=== PATIENT | female | born 1990 ===

== ENCOUNTER 2018-07-02 16:35 | Emergency (ER) | payer OTHER ==
[~2018-07-02] VITALS: Ht 157.5 cm; Wt 63.5 kg
[2018-07-02 17:06] LABS: BILIRUBIN,URINE NEGATIVE (NEGATIVE); CLARITY,URINE CLEAR; GLUCOSE, URINE (UA) NEGATIVE (NEGATIVE); KETONES,URINE NEGATIVE (NEGATIVE); LEUKOCYTE ESTERASE ,URINE NEGATIVE (NEGATIVE); NITRITE,URINE NEGATIVE (NEGATIVE); PH,URINE 6.5 (5-9); PROTEIN,URINE NEGATIVE (NEGATIVE); UROBILINOGEN,URINE NORMAL (NORMAL)
[2018-07-02 17:08] LABS: BASOPHILS % (AUTO) 0 % (0-10); EOSINOPHILS # (AUTO) 0.2 10^3/uL (0.0-0.3); EOSINOPHILS % (AUTO) 2 % (0-10); HEMATOCRIT 37 % (35-52); HEMOGLOBIN 12.7 G/DL (11.5-16.0); LYMPHOCYTES # (AUTO) 1.9 X 10^3 (1.0-4.0); LYMPHOCYTES % (AUTO) 28 % (12-44); MEAN CORPUSCULAR HEMOGLOBIN 30 PG (25-34); MEAN CORPUSCULAR HGB CONC 34 G/DL (32-36); MEAN CORPUSCULAR VOLUME 89 FL (80-99); MONOCYTES # (AUTO) 0.5 X 10^3 (0.0-1.0); MONOCYTES % (AUTO) 7 % (0-12); NEUTROPHILS # (AUTO) 4.2 X 10^3 (1.8-7.8); NEUTROPHILS % (AUTO) 63 % (42-75); PLATELET COUNT 230 10^3/uL (130-400); RED BLOOD COUNT 4.19 10^6/uL (4.35-5.85); RED CELL DISTRIBUTION WIDTH 12.7 % (10.0-14.5); WHITE BLOOD COUNT 6.7 10^3/uL (4.3-11.0)
[2018-07-02 17:10] LABS: COLOR,URINE STRAW
[2018-07-02 17:11] LABS: BACTERIA,URINE NEGATIVE /HPF
[2018-07-02 17:12] LABS: SQUAMOUS EPITHELIAL CELL,UR 0-2 /HPF
[2018-07-02 17:27] LABS: ALANINE AMINOTRANSFERASE 17 U/L (0-55); ALBUMIN 4.5 GM/DL (3.2-4.5); ALKALINE PHOSPHATASE 59 U/L (40-136); BILIRUBIN,TOTAL 0.3 MG/DL (0.1-1.0); BUN/CREATININE RATIO 8; CALCIUM 9.5 MG/DL (8.5-10.1); CARBON DIOXIDE 23 MMOL/L (21-32); CHLORIDE 104 MMOL/L (98-107); CREATININE SERUM 0.63 MG/DL (0.60-1.30); GFR ESTIMATED > 60; GLUCOSE 92 MG/DL (70-105); POTASSIUM 3.7 MMOL/L (3.6-5.0); SODIUM 138 MMOL/L (135-145)
--- NOTE | 2018-07-02 17:32 | ED GU-Female ---
General Chief Complaint: -Female Stated Complaint: SPOTTING AFTER + HOME TEST LMP 05/24/18 Nursing Triage Note: PATIENT AMBULATORY TO ER WITH COMPLAINT OF VAGINAL SPOTTING X 2 DAYS. PATIENT STATES LAST MENSTRUAL CYCLE WAS 05/24/18 AND SHE HAD A POSITIVE HOME TEST. SHE HAS HAD ABDOMINAL CRAMPING AND LOW BACK PAIN FOR TWO DAYS. Nursing Sepsis Screen: No Definite Risk Source: patient Exam Limitations: no limitations History of Present Illness Date Seen by Provider: Jul 02, 2018 Time Seen by Provider: 16:39 Initial Comments Patient is a 28-year-old female who presents to the emergency room with complaints of vaginal spotting for the past 2 days. She reports that she had a positive test at home a few days ago and her last menstrual cycle was 05/24/18. Along with the spotting she is having abdominal cramping and low back pain for the past 2 days. Timing/Duration: yesterday Severity/Quality: cramping Location: suprapubic Radiation: back Associated Symptoms: lower back pain Allergies and Home Medications Allergies Coded Allergies: No Known Drug Allergies (Unverified , 07/02/18) Patient Home Medication List Home Medication List Reviewed: Yes Review of Systems Review of Systems Constitutional: see HPI; No chills, No fever Genitourinary: see HPI, other (vaginal spotting.) : Yes LMP: May 04, 2018 All Other Systemes Reviewed Negative Unless Noted: Yes Past Vhmhdgj-Poejdo-Zzjgal Hx Past Med/Social Hx: Reviewed Nursing Past Med/Soc Hx Patient Social History Alcohol Use: Denies Use Recreational Drug Use: No Smoking Status: Never a Smoker 2nd Hand Smoke Exposure: No Recent Foreign Travel: No Contact w/Someone Who Travel: No Recent Infectious Disease Expo: No Recent Hopitalizations: No Physical Abuse: No Sexual Abuse: No Mistreated: No Fear: No Seasonal Allergies Seasonal Allergies: No Past Medical History Surgeries: Yes Gallbladder Respiratory: No Cardiac: No Neurological: No : Yes (POSITIVE HOME TEST) Last Menstrual Period: May 24, 2018 Genitourinary: No Gastrointestinal: Yes Gastroesophageal Reflux Musculoskeletal: No Endocrine: No HEENT: No Cancer: No Psychosocial: No Integumentary: No Blood Disorders: No Family Medical History Reviewed Nursing Family Hx Physical Exam Vital Signs Vital Signs - First Documented 07/02/18 07/02/18 16:39 19:53 Temp 98.6 Pulse 79 Resp 16 B/P (MAP) 110/71 (84) Pulse Ox 100 O2 Delivery Room Air Capillary Refill : Less Than 3 Seconds Height, Weight, BMI Height: 5'2.00" Weight: 140lbs. oz. 63.840626ym; BMI Method:Stated General Appearance: WD/WN, no apparent distress Cardiovascular: normal peripheral pulses, regular rate, rhythm, no edema, no gallop, no JVD, no murmur Respiratory: chest non-tender, lungs clear, normal breath sounds, no respiratory distress, no accessory muscle use, respiratory distress Gastrointestinal: normal bowel sounds, non tender, soft, no organomegaly, no pulsatile mass, abnormal bowel sounds Back: normal inspection, no CVA tenderness, no vertebral tenderness, CVA tenderness (R), CVA tenderness (L) Neurologic/Psychiatric: alert, normal mood/affect, oriented x 3 Skin: normal color, warm/dry Progress/Results/Core Measures Suspected Sepsis Recent Fever Within 48 Hours: No Infection Criteria Present: None New/Unexplained Altered Menta: No Sepsis Screen: No Definite Risk SIRS Temperature:98.6 Pulse: 79 Respiratory Rate: 16 Laboratory Tests 07/02/18 17:01: White Blood Count 6.7 Blood Pressure 110 /71 Mean: 84 Laboratory Tests 07/02/18 17:01: Creatinine 0.63, Platelet Count 230, Total Bilirubin 0.3 Results/Orders Lab Results My Orders Vital Signs/I&O Capillary Refill : Less Than 3 Seconds Blood Pressure Mean: 84 Progress Note : Time: 19:40 Progress Note I have seen and evaluated the patient. I've informed her of ultrasound findings. She agrees with plans for discharge, close follow-up with counts include [facility] beds at the [facility] and Dr. Roberts as scheduled for recheck. Return precautions were given. Diagnostic Imaging Diagonstic Imaging: Ultrasound Plain Films/CT/US/NM/MRI: pelvis Comments NAME: ZEESHANANTONIETA Ma [facility] REC#: [id number] PT STATUS: DEP ER : 1990 PHYSICIAN: SARMAD COLUNGA ADMIT DATE: 07/02/18/ER Signed Date of Exam: 07/02/18 US OB TRANSVAGINAL [id number] INDICATION: Vaginal bleeding. COMPARISON: None available. TECHNIQUE: Transvaginal sonographic imaging of the pelvis was performed in various projections. FINDINGS: There is a gestational sac located within the uterus at the level of the fundus. The gestational sac has a normal morphology. A normal yolk sac is present within the gestational sac. A very small embryo is present with a heart rate detected at 101 beats per minute. Based on crown-rump length, the estimated gestational age is 5 weeks and 6 days. Estimated due date is 02/26/2019. Assessment of the adnexa demonstrated no abnormality. The right ovary measures 2.4 x 2.4 x 1.8 cm. The left ovary is not seen. No free pelvic fluid. IMPRESSION: Single live early intrauterine . Dictated by: Dictated on workstation # [id number] Dict: 07/02/181931 Trans: 07/02/182006 Interpreted by: YOSELIN COOK MD Electronically signed by: YOSELIN COOK MD 07/02/182006 Reviewed: Reviewed by Me Departure Impression Primary Impression: Spotting during in first trimester Disposition: 01 HOME, SELF-CARE Condition: Stable/Unchanged Departure-Patient Inst. Decision time for Depature: 19:45 Referrals: FEDERICO ROBERTS DO Patient Instructions: SPOTTING IN EARLY Add. Discharge Instructions: Continue your vitamins as directed. Follow-up with Dr. ROBERTS as scheduled next week. Return back to the emergency room for any worsening vaginal bleeding, any worsening symptoms. No intercourse or anything intravaginally until you follow-up with Dr. ROBERTS. All discharge instructions reviewed with patient and/or family. Voiced understanding. SARMAD COLUNGA Jul 02, 2018 17:32
--- NOTE | 2018-07-02 19:41 | Diagnostic Imaging Report ---
INDICATION: Vaginal bleeding. COMPARISON: None available. TECHNIQUE: Transvaginal sonographic imaging of the pelvis was performed in various projections. FINDINGS: There is a gestational sac located within the uterus at the level of the fundus. The gestational sac has a normal morphology. A normal yolk sac is present within the gestational sac. A very small embryo is present with a heart rate detected at 101 beats per minute. Based on crown-rump length, the estimated gestational age is 5 weeks and 6 days. Estimated due date is 02/26/2019. Assessment of the adnexa demonstrated no abnormality. The right ovary measures 2.4 x 2.4 x 1.8 cm. The left ovary is not seen. No free pelvic fluid. IMPRESSION: Single live early intrauterine . Dictated by: Dictated on workstation # [id number]
[2018-07-02 19:53] VITALS: BP 103/65
== END 2018-07-02 19:53 | disposition home or self-care (01) ==
LOC: ER 16:38
DX: O26.851 Spotting complicating pregnancy, first trimester (principal); O99.611 Diseases of the digestive system complicating pregnancy, first trimester; K21.9 Gastro-esophageal reflux disease without esophagitis; Z3A.01 Less than 8 weeks gestation of pregnancy
CPT/HCPCS: 36415; 76817; 80053; 81000; 84702; 85025

== ENCOUNTER → 2018-10-20 | Outpatient (CLI) | payer OTHER ==
--- NOTE | 2018-10-20 15:10 | Diagnostic Imaging Report ---
INDICATION: survey. TECHNIQUE: Multiple real-time grayscale images were obtained over the gravid uterus. COMPARISON: 07/02/2018. FINDINGS: There is a single live fetus in a transverse presentation. The heart rate was recorded at 156 beats per minute. Placenta is anterior. The amniotic fluid volume is normal. survey demonstrates kidneys, bladder and stomach to be unremarkable. The brain is unremarkable. There is a three-vessel cord with normal insertion. Four-chamber heart view as well as the spine are somewhat limited due to position. Biometrical measurements are as follows: Biparietal 5.26 cm, age 22 weeks 0 days. Head circumference 19.63 cm, age 21 weeks 6 days. Abdominal circumference 17.79 cm, age 22 weeks 5 days. Femur length 3.69 cm, age 21 weeks 6 days. Sonographic estimate age: 22 weeks 1 days. Sonographic estimated date of delivery: 02/22/2019. Estimated Weight: 485 gm (+/- 71 gm). LMP percentile: 89%. heart rate: 156 beats per minute. number: 1 of 1. IMPRESSION: Single live IUP approximately 22 weeks 1 day gestational age with estimated date of confinement sonographically 02/22/2019. survey is unremarkable although the spine and four-chamber heart view were limited due to position. Dictated by: Dictated on workstation # [id number]
== END ==
LOC: RAD 11:12
PROVIDERS: ATTEND Obstetrics & Gynecology
DX: Z36.89 Encounter for other specified antenatal screening (principal); Z68.22 Body mass index [BMI] 22.0-22.9, adult
CPT/HCPCS: 76805

== ENCOUNTER 2019-02-12 10:53 | Inpatient (IN) | payer MEDICAID, OTHER ==
[~2019-02-12] VITALS: Ht 144.8 cm; Wt 76.9 kg
[2019-02-12] VITALS (55 sets, daily range): BP systolic 87–137; BP diastolic 49–76
--- NOTE | 2019-02-12 11:01 | NUR ---
ANTONIETA BRADEN presented to unit via AMBULATORY from ED, accompanied by FAMILY, with c/o WATER BROKE/CONTRACTIONS. ANTONIETA BRADEN weighed, gowned, voided, and to bed. EFHM and TOCO applied, VS taken. ANTONIETA BRADEN oriented to bed controls, call light, TV, heat, and A/C controls.
[2019-02-12] MEDS ORDERED: DOCU-143 PO (11:16)
--- NOTE | 2019-02-12 11:16 | NUR ---
Dr. Roberts notified of patient's arrival, complaints, and exam. New orders received.
[2019-02-12] MEDS ORDERED: PREN-37 PO (11:17)
[2019-02-12] MEDS ORDERED: OXYTOCIN/NORMAL SALINE 500 ML IV SCH (11:30)
[2019-02-12] MEDS ORDERED: D5 LR IV SOLUTION 1,000 ML IV SCH (11:30)
[2019-02-12 11:56] LABS: BASOPHILS % (AUTO) 0 % (0-10); EOSINOPHILS % (AUTO) 0 % (0-10); HEMATOCRIT 32 % (35-52); LYMPHOCYTES # (AUTO) 1.7 X 10^3 (1.0-4.0); LYMPHOCYTES % (AUTO) 21 % (12-44); MEAN CORPUSCULAR HEMOGLOBIN 26 PG (25-34); MEAN CORPUSCULAR HGB CONC 32 G/DL (32-36); MEAN CORPUSCULAR VOLUME 81 FL (80-99); MEAN PLATELET VOLUME 10.7 FL (7.4-10.4); MONOCYTES # (AUTO) 0.5 X 10^3 (0.0-1.0); MONOCYTES % (AUTO) 6 % (0-12); NEUTROPHILS # (AUTO) 5.8 X 10^3 (1.8-7.8); NEUTROPHILS % (AUTO) 73 % (42-75); PLATELET COUNT 273 10^3/uL (130-400); RED CELL DISTRIBUTION WIDTH 15.8 % (10.0-14.5)
[2019-02-12 12:01] LABS: BILIRUBIN,URINE NEGATIVE (NEGATIVE); CLARITY,URINE SLIGHTLY CLOUDY; COLOR,URINE YELLOW; GLUCOSE, URINE (UA) NEGATIVE (NEGATIVE); KETONES,URINE NEGATIVE (NEGATIVE); LEUKOCYTE ESTERASE ,URINE NEGATIVE (NEGATIVE); NITRITE,URINE NEGATIVE (NEGATIVE); PH,URINE 6 (5-9); PROTEIN,URINE 2+ (NEGATIVE); UROBILINOGEN,URINE NORMAL (NORMAL)
[2019-02-12 12:20] LABS: BACTERIA,URINE TRACE /HPF
[2019-02-12] MEDS ORDERED: SUFENTA 0.6MCG/ML BUPIVA 0.125 100 ML ONE (16:45)
[2019-02-12] MEDS ORDERED: LACTATED RINGERS 1,000 ML IV ONE ×3 (16:45→17:54)
[2019-02-12] MEDS ORDERED: BUPIVACAINE 0.25% 30 ML (SENSORCAINE) VIAL ONE (17:21)
[2019-02-12] MEDS ORDERED: fentaNYL INJECTION 100 MCG/2 ML AMP ONE (17:22)
[2019-02-12] MEDS ORDERED: EPIDURAL (SUFENTA 0.6MCG/ML BUPIVA 0.125%) 100 ML BAG EPI PRN (18:00)
[2019-02-12] MEDS ORDERED: ONDANSETRON 4 MG/2 ML (SDV) Z0FRAN IV PRN (18:00)
[2019-02-12] MEDS ORDERED: NALOXONE 0.4 MG/ML 1 ML (NARCAN) VIAL IV PRN (18:00)
[2019-02-12] MEDS: CATHETER FLUSH 10 ML SYR IV SCH (18:14)
[2019-02-12] MEDS ORDERED: LIDOCAINE/EPI 2% 1:200,00 (XYLOCAINE) 10 ML VIAL ONE (19:28)
--- NOTE | 2019-02-12 20:08 | OB Labor & Delivery Record ---
L&D History Date of Service Date of Service: February 12, 2019 History Expected Date of Delivery: Feb 28, 2019 Gestational Age in Weeks: 37 Hx : 3 Hx Para: 2 Complications Events: Routine care Operative Indications (Cesarea: N/A-Vaginal Delivery Intrapartal Events: None L&D Stage1 Stage One Onset of Labor - Date: February 12, 2019 Monitors and Tracing Monitor Mode: External Heart Rate: 145 Monitor Accelerations: Uniform Monitor Decelerations: None Station: -1 Oil [employer] Superintendent Variability: Average (6-10) Short Term Variability: Present Presentation: Vertex Vital Signs VS - Last 72 Hours, by Label 02/12/19 02/12/19 02/12/19 02/12/19 11:14 11:59 12:14 12:29 Temp 98.0 Pulse 90 90 82 88 Resp 18 18 18 18 B/P (MAP) 108/69 (82) 111/70 (84) 120/63 (82) 109/65 (80) O2 Delivery Room Air Room Air Room Air Room Air 02/12/19 02/12/19 02/12/19 02/12/19 13:07 13:14 13:30 13:44 Temp 99.1 Pulse 76 98 75 75 Resp 18 18 18 18 B/P (MAP) 106/58 (74) 106/60 (75) 104/59 (74) 101/60 (74) O2 Delivery Room Air Room Air Room Air Room Air 02/12/19 02/12/19 02/12/19 02/12/19 14:00 14:15 14:30 14:45 Pulse 71 78 75 78 Resp 18 18 18 18 B/P (MAP) 104/62 (76) 111/63 (79) 109/64 (79) 116/68 (84) O2 Delivery Room Air Room Air Room Air Room Air 02/12/19 02/12/19 02/12/19 02/12/19 15:00 15:15 15:30 15:45 Temp 98.7 Pulse 72 70 75 68 Resp 18 18 18 18 B/P (MAP) 108/61 (77) 105/59 (74) 113/69 (84) 109/62 (78) O2 Delivery Room Air Room Air Room Air Room Air 02/12/19 02/12/19 02/12/19 02/12/19 16:00 16:15 16:15 16:30 Temp 98.2 Pulse 67 77 70 Resp 18 18 18 B/P (MAP) 111/66 (81) 110/58 (75) 110/65 (80) O2 Delivery Room Air Room Air Room Air 02/12/19 02/12/19 02/12/19 02/12/19 16:45 17:00 17:15 17:27 Pulse 75 73 83 Resp 18 18 18 B/P (MAP) 114/62 (79) 115/67 (83) 108/66 (80) Pulse Ox 100 O2 Delivery Room Air Room Air Room Air Room Air 02/12/19 02/12/19 02/12/19 02/12/19 17:30 17:30 17:33 17:35 Pulse 94 86 92 Resp 18 18 18 B/P (MAP) 114/71 (85) 120/64 (82) 137/66 (89) Pulse Ox 100 O2 Delivery Room Air Room Air Room Air Room Air 02/12/19 02/12/19 02/12/19 02/12/19 17:37 17:39 17:41 17:43 Pulse 87 93 97 82 Resp 18 18 18 18 B/P (MAP) 119/64 (82) 119/63 (81) 118/58 (78) 126/62 (83) Pulse Ox 95 99 O2 Delivery Room Air Room Air Room Air Room Air 02/12/19 02/12/19 02/12/19 02/12/19 17:45 17:45 17:47 17:49 Temp 98.6 Pulse 85 80 84 Resp 18 18 18 B/P (MAP) 117/59 (78) 114/57 (76) 110/57 (74) Pulse Ox 98 98 O2 Delivery Room Air Room Air Room Air Room Air 02/12/19 02/12/19 02/12/19 02/12/19 17:51 17:53 17:55 17:57 Pulse 75 75 76 76 Resp 18 18 18 18 B/P (MAP) 107/55 (72) 106/55 (72) 100/58 (72) 102/57 (72) Pulse Ox 98 O2 Delivery Room Air Room Air Room Air Room Air 02/12/19 02/12/19 02/12/19 02/12/19 17:59 18:01 18:04 18:04 Temp 98.1 Pulse 71 66 Resp 18 18 B/P (MAP) 105/55 (72) 105/58 (74) Pulse Ox 99 100 100 O2 Delivery Room Air Room Air Room Air Room Air 02/12/19 02/12/19 02/12/19 02/12/19 18:15 18:30 18:45 19:00 Temp 98.0 Pulse 72 67 69 68 Resp 18 18 18 18 B/P (MAP) 104/57 (73) 109/53 (71) 102/55 (71) Pulse Ox 100 100 99 100 O2 Delivery Room Air Room Air Room Air Room Air Rupture of Membranes Spontaneous Ruture of Membrane: Yes Amniotic Membrane Rupture Time: 0400 Amniotic Membrane Fluid Desc.: Clear Vaginal Bleeding Description: Normal Show Induction/Anesthesia Epidural Cath Placement - Time: 1739 Progress/Notes Augmentation with pitocin started at admission due to no contraction pattern. Pitocin Max dose of 10 mu reached and progressed to complete and +1 station with epidural received for analgesia L&D Stage2 Stage Two Stage II Date: February 12, 2019 Monitors and Tracing Monitor Mode: External Heart Rate: 145 Monitor Accelerations: Uniform Monitor Decelerations: Variable [employer] Superintendent Variability: Average (6-10) Short Term Variability: Present Position: Right Occiput Anterior Presentation: Vertex Cord Descript/Complications Cord Vessel Description: 3 Vessels Delivery Type Delivery Method: Spontaneous Vaginal Anterior Shoulder: Right Episiotomy/Perineal Laceration Laceraction(s)/Extensions: No Condition of Infant Delivery 1 minute Comment: 9 5 minute Comment: 9 Notes Live female weight 7lbs 5oz Condition of Infant Condition of : Living Exam: No Observed Abnormalities Resuscitation Resuscitation: N/A - Spontaneous Resp L&D Stage3 Stage Three Stage III Date: February 12, 2019 Pictocin Pitocin Administration mu/min: 12 Pitocin ml/hr: 12 Pitocin Administration Comment: 30 mu wide open at delivery ofplacenta Placenta Delivery Placenta Delivery: Spontaneous Delivery Summary Summary Estimated blood loss (mL): 250 Attending at delivery: Federico Tellez DO Condition of Delivery Examined: Cervix Examined, Uterus Explored Post Hemorrhage: No Condition of Mother stable Condition of Infant (s) stable FEDERICO TELLEZ DO February 12, 2019 20:08
--- NOTE | 2019-02-12 20:12 | History & Physical-OB ---
OB - Chief Complaint & HPI Date/Time Date of Admission: Date of Admission: February 12, 2019 at 11:16 Date seen by a Provider: February 12, 2019 Time Seen by a Provider: 07:15 Chief Complaint/History OB-Reason for Admission/Chief: Onset of Labor Hx : 3 Hx Para: 2 Expected Date of Delivery: Feb 28, 2019 Gestational Age in Weeks: 37 Gestational Age in Days: 5 Admission Nurse Assessment Rev: Yes Allergies and Home Medications Allergies Coded Allergies: No Known Drug Allergies (Unverified , 07/02/18) Home Medications Docusate Sodium 100 Mg Capsule, 100 MG PO BID, (Reported) Vit/Iron Fumarate/FA 1 Each Tablet, 1 EACH PO DAILY, (Reported) Patient Home Medication List Home Medication List Reviewed: Yes OB - History Hx of Present Care: Yes Ultrasounds: Normal mid trimester US Obstetrical Complications: None Medical Complications: None Obstetrical History Hx : 3 Hx Para: 2 Hx Total # of Abortions (Spona: 0 Delivery History Adverse Rxn to Tranfusion: No Patient Past Medical History n/a Social History/Family History Recent Infectious Disease Expo: No Alcohol Use: Denies Use Recreational Drug Use: No 2nd Hand Smoke Exposure: No OB - Admission Exam Physical Exam Vitals: Vital Signs 02/12/19 02/12/19 18:45 19:00 Temp 98.0 Pulse 68 Resp 18 B/P (MAP) 102/55 (71) Pulse Ox 100 O2 Delivery Room Air HEENT: NCAT Heart: Rhythm Normal Lungs: Clear Abdomen: Gravid Extremities: Normal Reflexes: Normal Cervical Dilatation: 2cm Effacement: 50% Station: -2 Membranes: Ruptured Amniotic Fluid: Clear Heart Rate: 130's Accelerations: Accelerations Present Decelerations: No Decelerations Short Term Variability: Present Lead Enterprise Architect Variability: Average (6-25) Contractions on Admission: 6-10 Minutes Apart Labs Laboratory Tests Test 02/12/19 11:01 02/12/19 11:40 Range/Units Urine Color YELLOW Urine Clarity SLIGHTLY CLOUDY Urine pH 6 5-9 Urine Specific [place] 1.020 1.016-1.022 Urine Protein 2+ H NEGATIVE Urine Glucose (UA) NEGATIVE NEGATIVE Urine Ketones NEGATIVE NEGATIVE Urine Nitrite NEGATIVE NEGATIVE Urine Bilirubin NEGATIVE NEGATIVE Urine Urobilinogen NORMAL NORMAL MG/DL Urine Leukocyte Esterase NEGATIVE NEGATIVE Urine RBC (Auto) NEGATIVE NEGATIVE Urine RBC NONE /HPF Urine WBC NONE /HPF Urine Squamous Epithelial Cells 5-10 /HPF Urine Crystals NONE /LPF Urine Bacteria TRACE /HPF Urine Casts NONE /LPF Urine Mucus SMALL H /LPF Urine Culture Indicated NO White Blood Count 8.0 4.3-11.0 10^3/uL Red Blood Count 3.89 L 4.35-5.85 10^6/uL Hemoglobin 10.0 L 11.5-16.0 G/DL Hematocrit 32 L 35-52 % Mean Corpuscular Volume 81 80-99 FL Mean Corpuscular Hemoglobin 26 25-34 PG Mean Corpuscular Hemoglobin Concent 32 32-36 G/DL Red Cell Distribution Width 15.8 H 10.0-14.5 % Platelet Count 273 130-400 10^3/uL Mean Platelet Volume 10.7 H 7.4-10.4 FL Neutrophils (%) (Auto) 73 42-75 % Lymphocytes (%) (Auto) 21 12-44 % Monocytes (%) (Auto) 6 0-12 % Eosinophils (%) (Auto) 0 0-10 % Basophils (%) (Auto) 0 0-10 % Neutrophils # (Auto) 5.8 1.8-7.8 X 10^3 Lymphocytes # (Auto) 1.7 1.0-4.0 X 10^3 Monocytes # (Auto) 0.5 0.0-1.0 X 10^3 Eosinophils # (Auto) 0.0 0.0-0.3 10^3/uL Basophils # (Auto) 0.0 0.0-0.1 10^3/uL OB - Assessment/Plan/Diagnosis Assessment Assessment: rupture of membranes Admission Dx 29 yo @ 37.5 weeks SROM Active labor GBS neg Admission Status: Inpatient Order (span 2 midnights) Reason for Inpatient Admission: SROM at term Plan Plan: Expectant Management (Pitocin augmentation) FEDERICO TELLEZ DO February 12, 2019 20:12
[2019-02-12] MEDS: OXYTOCIN/NORMAL SALINE 500 ML IV SCH ×2 (20:15→22:44)
[2019-02-12] MEDS ORDERED: MEASLES,MUMPS,RUBELLA 1 EA INJ SQ ONE (20:15)
[2019-02-12] MEDS ORDERED: WITCH HAZEL(TUCKS) 40 EA JAR TOP PRN (20:15)
[2019-02-12] MEDS ORDERED: BENZOCAINE/MENTHOL (DERMOPLAST) 56 ML CAN TP PRN (20:15)
[2019-02-12] MEDS ORDERED: TETANUS,DIPTH,PERTUSS P/F (BOOSTRIX) 0.5 ML VIAL IM ONE (20:15)
[2019-02-12] MEDS ORDERED: CATHETER FLUSH 10 ML SYR IV SCH (22:00)
[2019-02-13] MEDS: CATHETER FLUSH 10 ML SYR IV SCH (00:51)
[2019-02-13 00:56] VITALS: BP 87/53
[2019-02-13] MEDS: IBUPROFEN 600 MG (MOTRIN) TAB PO SCH ×4 (00:56→20:50)
[2019-02-13] MEDS: DOCUSATE SODIUM 100 MG (COLACE) CAP PO SCH ×3 (00:56→20:50)
[2019-02-13 04:20] VITALS: BP 98/65
[2019-02-13] MEDS: HYDROcodone/APAP 5 MG/325 MG (LORTAB) TAB PO PRN ×2 (04:20→17:25)
[2019-02-13 05:39] LABS: BASOPHILS % (AUTO) 0 % (0-10); EOSINOPHILS % (AUTO) 0 % (0-10); HEMATOCRIT 32 % (35-52); HEMOGLOBIN 9.8 G/DL (11.5-16.0); LYMPHOCYTES # (AUTO) 1.9 X 10^3 (1.0-4.0); LYMPHOCYTES % (AUTO) 16 % (12-44); MEAN CORPUSCULAR HEMOGLOBIN 26 PG (25-34); MEAN CORPUSCULAR HGB CONC 31 G/DL (32-36); MEAN CORPUSCULAR VOLUME 83 FL (80-99); MEAN PLATELET VOLUME 10.8 FL (7.4-10.4); MONOCYTES # (AUTO) 0.8 X 10^3 (0.0-1.0); MONOCYTES % (AUTO) 7 % (0-12); NEUTROPHILS # (AUTO) 8.7 X 10^3 (1.8-7.8); NEUTROPHILS % (AUTO) 76 % (42-75); PLATELET COUNT 232 10^3/uL (130-400); RED CELL DISTRIBUTION WIDTH 15.8 % (10.0-14.5); WHITE BLOOD COUNT 11.5 10^3/uL (4.3-11.0)
--- NOTE | 2019-02-13 07:00 | NUR ---
REPORT FROM MAGALYS CORNEJO.
--- NOTE | 2019-02-13 07:45 | NUR ---
DR TELLEZ HERE.
--- NOTE | 2019-02-13 08:04 | Postpartum Progress Note ---
Note Note Day # 1 Subjective: Patient is without complaints. Ambulating, voiding. Tolerating a regular diet without nausea or vomiting. Normal lochia. Pain is well controlled with oral pain medications. Objective: Physical Exam: General - Alert and oriented, no apparent distress Abdomen - Soft, appropriately tender to palpation, non-distended, fundus firm at umbilicus Extremities - no edema, negative Deisi's bilaterally Assessment: PPD 1 NVD Acute blood loss anemia Plan: Routine care. Encourage breast feeding. Encourage ambulation. Ferrous sulfate supplementation. Plan for discharge tomorrow Vitals - Labs Vital Signs - I&O Vital Signs Date Time Temp Pulse Resp B/P (MAP) Pulse Ox O2 Delivery O2 Flow Rate FiO2 02/13/19 04:20 97.3 67 18 98/65 (76) 99 Room Air 02/13/19 00:56 97.8 74 18 87/53 (64) 99 Room Air 02/12/19 23:00 98.3 64 18 96/51 (66) Room Air 02/12/19 22:30 98.5 68 18 104/55 (71) Room Air 02/12/19 22:00 99.1 76 18 95/54 (68) Room Air 02/12/19 21:45 75 18 87/56 (66) Room Air 02/12/19 21:30 71 18 96/55 (69) Room Air 02/12/19 21:15 98.8 71 18 96/52 (67) Room Air 02/12/19 21:00 71 18 99/49 (66) Room Air 02/12/19 20:45 98.8 69 18 101/50 (67) Room Air 02/12/19 20:30 65 18 109/58 (75) Room Air 02/12/19 20:00 98.6 73 18 99/52 (68) Room Air 02/12/19 19:45 84 18 118/57 (77) 100 Room Air 02/12/19 19:30 98.5 77 18 127/76 (93) 100 Room Air 02/12/19 19:15 71 18 116/62 (80) 100 Room Air 02/12/19 19:00 18 98/54 (69) 100 Room Air 02/12/19 19:00 98.0 68 18 100 Room Air 02/12/19 18:45 69 18 102/55 (71) 99 Room Air 02/12/19 18:30 67 18 109/53 (71) 100 Room Air 02/12/19 18:15 72 18 104/57 (73) 100 Room Air 02/12/19 18:04 100 Room Air 02/12/19 18:04 98.1 100 Room Air 02/12/19 18:01 66 18 105/58 (74) Room Air 02/12/19 17:59 71 18 105/55 (72) 99 Room Air 02/12/19 17:57 76 18 102/57 (72) Room Air 02/12/19 17:55 76 18 100/58 (72) Room Air 02/12/19 17:53 75 18 106/55 (72) 98 Room Air 02/12/19 17:51 75 18 107/55 (72) Room Air 02/12/19 17:49 84 18 110/57 (74) 98 Room Air 02/12/19 17:47 80 18 114/57 (76) Room Air 02/12/19 17:45 85 18 117/59 (78) Room Air 02/12/19 17:45 98.6 98 Room Air 02/12/19 17:43 82 18 126/62 (83) 99 Room Air 02/12/19 17:41 97 18 118/58 (78) Room Air 02/12/19 17:39 93 18 119/63 (81) 95 Room Air 02/12/19 17:37 87 18 119/64 (82) Room Air 02/12/19 17:35 92 18 137/66 (89) Room Air 02/12/19 17:33 86 18 120/64 (82) Room Air 02/12/19 17:30 94 18 114/71 (85) Room Air 02/12/19 17:30 100 Room Air 02/12/19 17:27 100 Room Air 02/12/19 17:15 83 18 108/66 (80) Room Air 02/12/19 17:00 73 18 115/67 (83) Room Air 02/12/19 16:45 75 18 114/62 (79) Room Air 02/12/19 16:30 70 18 110/65 (80) Room Air 02/12/19 16:15 98.2 02/12/19 16:15 77 18 110/58 (75) Room Air 02/12/19 16:00 67 18 111/66 (81) Room Air 02/12/19 15:45 68 18 109/62 (78) Room Air 02/12/19 15:30 75 18 113/69 (84) Room Air 02/12/19 15:15 98.7 70 18 105/59 (74) Room Air 02/12/19 15:00 72 18 108/61 (77) Room Air 02/12/19 14:45 78 18 116/68 (84) Room Air 02/12/19 14:30 75 18 109/64 (79) Room Air 02/12/19 14:15 78 18 111/63 (79) Room Air 02/12/19 14:00 71 18 104/62 (76) Room Air 02/12/19 13:44 75 18 101/60 (74) Room Air 02/12/19 13:30 75 18 104/59 (74) Room Air 02/12/19 13:14 98 18 106/60 (75) Room Air 02/12/19 13:07 99.1 76 18 106/58 (74) Room Air 02/12/19 12:29 88 18 109/65 (80) Room Air 02/12/19 12:14 82 18 120/63 (82) Room Air 02/12/19 11:59 90 18 111/70 (84) Room Air 02/12/19 11:14 98.0 90 18 108/69 (82) Room Air I & O 02/13/19 07:00 Intake Total 3000 ml Output Total 0 ml Balance 3000 ml Labs Laboratory Tests 02/12/19 11:01: Urine Color YELLOW, Urine Clarity SLIGHTLY CLOUDY, Urine pH 6, Urine Specific [place] 1.020, Urine Protein 2+H, Urine Glucose (UA) NEGATIVE, Urine Ketones NEGATIVE, Urine Nitrite NEGATIVE, Urine Bilirubin NEGATIVE, Urine Urobilinogen NORMAL, Urine Leukocyte Esterase NEGATIVE, Urine RBC (Auto) NEGATIVE, Urine RBC NONE, Urine WBC NONE, Urine Squamous Epithelial Cells 5-10, Urine Crystals NONE, Urine Bacteria TRACE, Urine Casts NONE, Urine Mucus SMALLH, Urine Culture Indicated NO 02/12/19 11:40: White Blood Count 8.0, Red Blood Count 3.89L, Hemoglobin 10.0L, Hematocrit 32L, Mean Corpuscular Volume 81, Mean Corpuscular Hemoglobin 26, Mean Corpuscular Hemoglobin Concent 32, Red Cell Distribution Width 15.8H, Platelet Count 273, Mean Platelet Volume 10.7H, Neutrophils (%) (Auto) 73, Lymphocytes (%) (Auto) 21, Monocytes (%) (Auto) 6, Eosinophils (%) (Auto) 0, Basophils (%) (Auto) 0, Neutrophils # (Auto) 5.8, Lymphocytes # (Auto) 1.7, Monocytes # (Auto) 0.5, Eosinophils # (Auto) 0.0, Basophils # (Auto) 0.0 02/13/19 05:29: White Blood Count 11.5H, Red Blood Count 3.82L, Hemoglobin 9.8L, Hematocrit 32L, Mean Corpuscular Volume 83, Mean Corpuscular Hemoglobin 26, Mean Corpuscular Hemoglobin Concent 31L, Red Cell Distribution Width 15.8H, Platelet Count 232, Mean Platelet Volume 10.8H, Neutrophils (%) (Auto) 76H, Lymphocytes (%) (Auto) 16, Monocytes (%) (Auto) 7, Eosinophils (%) (Auto) 0, Basophils (%) (Auto) 0, Neutrophils # (Auto) 8.7H, Lymphocytes # (Auto) 1.9, Monocytes # (Auto) 0.8, Eosinophils # (Auto) 0.0, Basophils # (Auto) 0.0 FEEDRICO TELLEZ DO February 13, 2019 08:04
--- NOTE | 2019-02-13 08:05 | Discharge Inst-Women's Service ---
Discharge Inst-Women's Serv Depart Medication/Instructions New, Converted or Re-Newed RX: RX on Chart Final Diagnosis PPD 2 NVD Consults/Follow Up Additional Follow Up: Yes Orders/Referrals Dr. Tellez in 6 weeks Activity Activity: Activity as Tolerated Driving Instructions: No Driving for 1 Week NO SMOKING: NO SMOKING Nothing Inside Vagina: No Douching, No [place], No Tampons Diet Discharge Diet: No Restrictions Symptoms to Report to : Bleeding Excessive, Pain Increased, Fever Over 101 Degrees F, Vaginal Bleeding Increase, Questions/Concerns For Any Problems or Questions: Contact Your Physician FEDERICO TELLEZ DO February 13, 2019 08:05
[2019-02-13] MEDS ORDERED: IBUP-844 PO (08:08)
[2019-02-13] MEDS ORDERED: DOCU100C37 PO (08:08)
[2019-02-13] MEDS ORDERED: ACHD5005 PO (08:08)
[2019-02-13 08:30] VITALS: BP 97/50
[2019-02-13] MEDS: FERROUS SULF 325 MG (IRON) TAB PO SCH (09:50)
[2019-02-13] MEDS: DOCUSATE CALCIUM 240 MG (SURFAK) CAP PO SCH ×2 (09:51→09:58)
[2019-02-13] MEDS: PRENATAL VITAMIN 1 EA TAB PO SCH (09:51)
[2019-02-13 12:30] VITALS: BP 121/69
--- NOTE | 2019-02-13 12:43 | Anesthesia-Regional Post-Op ---
Regional Patient Condition Mental Status: Alert, Oriented x3 Circulation: Same as Pre-Op Headache: Absent Sensation: Full Recovery Motor Block: Absent Post Op Complications Complications None Follow Up Care/Instructions Patient Instructions None needed. Anesthesia/Patient Condition Patient is doing well, no complaints, stable vital signs, no apparent adverse anesthesia problems. No complications reported per nursing. JACE WADE CRNA February 13, 2019 12:43
--- NOTE | 2019-02-13 12:45 | NUR ---
[facility].
--- NOTE | 2019-02-13 14:35 | NUR ---
PT C/O PAIN, LORTAB GIVEN.
[2019-02-13 20:50] VITALS: BP 101/66
[2019-02-14 03:05] VITALS: BP 81/49
[2019-02-14] MEDS: IBUPROFEN 600 MG (MOTRIN) TAB PO SCH ×2 (03:05→10:41)
--- NOTE | 2019-02-14 08:12 | Postpartum Progress Note ---
Note Note Day # 2 Subjective: Patient is without complaints. Ambulating, voiding. Tolerating a regular diet without nausea or vomiting. Normal lochia. Pain is well controlled with oral pain medications. Objective: Physical Exam: General - Alert and oriented, no apparent distress Abdomen - Soft, appropriately tender to palpation, non-distended, fundus firm at umbilicus Extremities - no edema, negative Deisi's bilaterally Assessment: PPD 2 NVD Acute blood loss anemia Plan: Routine care. Encourage breast feeding. Encourage ambulation. Ferrous sulfate supplementation. Plan for discharge today Vitals - Labs Vital Signs - I&O Vital Signs Date Time Temp Pulse Resp B/P (MAP) Pulse Ox O2 Delivery O2 Flow Rate FiO2 02/14/19 03:05 96.9 60 18 81/49 (60) 99 Room Air 02/13/19 20:50 97.1 69 20 101/66 (78) 99 Room Air 02/13/19 12:30 98.0 85 20 121/69 (86) Room Air 02/13/19 08:30 98.7 67 20 97/50 (66) 98 Room Air FEDERICO TELLEZ DO February 14, 2019 08:12
[2019-02-14] MEDS: PRENATAL VITAMIN 1 EA TAB PO SCH (10:41)
[2019-02-14] MEDS: DOCUSATE SODIUM 100 MG (COLACE) CAP PO SCH (10:42)
[2019-02-14] MEDS: DOCUSATE CALCIUM 240 MG (SURFAK) CAP PO SCH (10:42)
[2019-02-14] MEDS: FERROUS SULF 325 MG (IRON) TAB PO SCH (10:42)
[2019-02-14] MEDS ORDERED: TETANUS,DIPTH,PERTUSS P/F (BOOSTRIX) 0.5 ML VIAL IM ONE (11:58)
[2019-02-14 14:10] VITALS: BP 100/56
--- NOTE | 2019-02-14 14:10 | NUR ---
Discharged to home per wheelchair accompanied by family.
== END 2019-02-14 14:10 | disposition home or self-care (01) | DRG 806 ==
LOC: LDRP 10:53 → WSo 10:53 → LDRP 11:16
PROVIDERS: ADMIT Obstetrics & Gynecology; ATTEND Obstetrics & Gynecology
PROC: 10E0XZZ Delivery of Products of Conception, External Approach (ICD-10-PCS; principal; 2019-02-12)
DX: O90.81 Anemia of the puerperium (principal); D62 Acute posthemorrhagic anemia; Z3A.37 37 weeks gestation of pregnancy; Z37.0 Single live birth
CPT/HCPCS: 36415; 81000; 85025; 86850; 86900; 86901; 90715; 99212

== ENCOUNTER → 2019-07-27 | Outpatient (CLI) | payer OTHER ==
[~2019-07-27] VITALS: Ht 162 cm; Wt 71.8 kg
[~2019-07-27] MED LIST: ACHD5005 PO; BISA10SU58 RC; DOCU-143 PO; DOCU100C37 PO; IBUP-1773 PO; IBUP-844 PO; POLY17PO6 PO; PREN-37 PO
[2019-07-27 10:42] LABS: BASOPHILS % (AUTO) 0 % (0-10); EOSINOPHILS # (AUTO) 0.1 10^3/uL (0.0-0.3); EOSINOPHILS % (AUTO) 2 % (0-10); HEMATOCRIT 42 % (35-52); HEMOGLOBIN 13.5 G/DL (11.5-16.0); LYMPHOCYTES # (AUTO) 1.9 X 10^3 (1.0-4.0); LYMPHOCYTES % (AUTO) 31 % (12-44); MEAN CORPUSCULAR HEMOGLOBIN 30 PG (25-34); MEAN CORPUSCULAR HGB CONC 32 G/DL (32-36); MEAN CORPUSCULAR VOLUME 93 FL (80-99); MEAN PLATELET VOLUME 10.5 FL (7.4-10.4); MONOCYTES # (AUTO) 0.5 X 10^3 (0.0-1.0); MONOCYTES % (AUTO) 8 % (0-12); NEUTROPHILS # (AUTO) 3.5 X 10^3 (1.8-7.8); NEUTROPHILS % (AUTO) 58 % (42-75); PLATELET COUNT 242 10^3/uL (130-400); RED CELL DISTRIBUTION WIDTH 12.7 % (10.0-14.5); WHITE BLOOD COUNT 5.9 10^3/uL (4.3-11.0)
== END ==
LOC: PREOP 05:30
PROVIDERS: ATTEND Obstetrics & Gynecology
DX: Z01.812 Encounter for preprocedural laboratory examination (principal); R10.2 Pelvic and perineal pain; Z97.5 Presence of (intrauterine) contraceptive device
CPT/HCPCS: 36415; 85025; 86850; 86900; 86901; 87081

== ENCOUNTER 2019-07-31 06:02 | Day surgery (SDC) | payer OTHER ==
[~2019-07-31] VITALS: Ht 162 cm; Wt 71.8 kg
[2019-07-31] VITALS (11 sets, daily range): BP systolic 93–121; BP diastolic 61–76
[~2019-07-31 06:02] MED LIST changes: -IBUP-1773 PO
[2019-07-31] MEDS: LACTATED RINGERS 1,000 ML IV PRN ×2 (06:31→08:07)
[2019-07-31] MEDS ORDERED: BUPIVACAINE 0.25% 30 ML (SENSORCAINE) VIAL ONE ×2 (07:02→07:48)
[2019-07-31] MEDS ORDERED: MIDAZOLAM 2 MG/2 ML (VERSED) VIAL ONE (07:13)
[2019-07-31] MEDS ORDERED: D5 LR IV SOLUTION 1,000 ML IV SCH (07:13)
--- NOTE | 2019-07-31 07:13 | Progress Note-Pre Operative ---
Pre-Operative Progress Note H&P Reviewed The H&P was reviewed, patient examined and no changes noted. Date Seen by Provider: Jul 31, 2019 Time Seen by Provider: 07:12 Date H&P Reviewed: Jul 31, 2019 Time H&P Reviewed: 07:15 Pre-Operative Diagnosis: Retained IUD FEDERICO TELLEZ DO Jul 31, 2019 07:13 POS
[2019-07-31] MEDS ORDERED: HYDROcodone/APAP 5 MG/325 MG (LORTAB) TAB PO PRN (07:15)
[2019-07-31] MEDS ORDERED: ONDANSETRON 4 MG/2 ML (SDV) Z0FRAN IVP PRN (07:15)
[2019-07-31] MEDS ORDERED: KETOROLAC 30 MG/ML VIAL IVP ONE (07:15)
--- NOTE | 2019-07-31 07:19 | Discharge Inst-Women's Service ---
Discharge Inst-Women's Serv Depart Medication/Instructions New, Converted or Re-Newed RX: RX on Chart Problems Reviewed?: Yes Consults/Follow Up Orders/Referrals Dr. Tellez 2 weeks Activity Activity: Activity as Tolerated Driving Instructions: You May Drive NO SMOKING: NO SMOKING Nothing Inside Vagina: No Douching, No Selby, No Tampons Diet Discharge Diet: No Restrictions Symptoms to Report to : Bleeding Excessive, Pain Increased, Fever Over 101 Degrees F, Vaginal Bleeding Increase, Questions/Concerns For Any Problems or Questions: Contact Your Physician FEDERICO TELLEZ DO Jul 31, 2019 07:19 POS
[2019-07-31] MEDS ORDERED: ACHD5005 PO (07:20)
[2019-07-31] MEDS ORDERED: IBUP-1773 PO (07:20)
[2019-07-31] MEDS ORDERED: fentaNYL INJECTION 100 MCG/2 ML AMP ONE (07:34)
[2019-07-31] MEDS ORDERED: proPOfol 200 MG/20 ML (DIPRIVAN) VIAL IV ONE (07:53)
[2019-07-31] MEDS ORDERED: ROCURONIUM 10 MG/ML 5 ML SYRINGE IV ONE (07:53)
[2019-07-31] MEDS ORDERED: DEXAMETHASONE 10 MG/ML (DECADRON) 1 ML VIAL ONE (07:53)
[2019-07-31] MEDS ORDERED: LIDOCAINE PF 2% 5 ML (XYLOCAINE) VIAL ONE (07:53)
[2019-07-31] MEDS ORDERED: SEVOFLURANE (ULTANE) 15 ML INHAL SOLN ONE ×2 (07:53→08:45)
[2019-07-31] MEDS ORDERED: ONDANSETRON 4 MG/2 ML (SDV) Z0FRAN ONE (07:53)
--- NOTE | 2019-07-31 08:18 | Diagnostic Imaging Report ---
EXAMINATION: Abdominal radiographs, DATE: July 31, 2019. CLINICAL INDICATION: 29-year-old female, evaluation for retained intrauterine contraceptive device. COMPARISON: None. COMMENTS: The intrauterine contraceptive device is at the level of the left sacral ala and is approximately 2.8 cm lateral from midline. The upper abdomen is not entirely included in the field of view of imaging. There are no abnormally distended gas-filled segments of bowel. There is no identified free intraperitoneal air, pneumatosis, or portal venous gas. IMPRESSION: 1. The intrauterine contraceptive device projects over the left sacral ala and is 2.8 cm lateral from midline. Dictated by: Dictated on workstation # [id number]
[2019-07-31] MEDS ORDERED: GLYCOPYRROLATE 0.2 MG/ML (ROBINUL) 2 ML VIAL ONE (08:45)
[2019-07-31] MEDS ORDERED: NEOSTIGMINE 3 MG/3 ML VIAL ONE (08:45)
[2019-07-31] MEDS ORDERED: ceFAZolin INJECTION 1,000 MG ONE (08:49)
[2019-07-31] MEDS ORDERED: metroNIDAZOLE 500MG/100ML IVPB 100 ML ONE (08:50)
[2019-07-31] MEDS ORDERED: ceFAZolin INJECTION 1,000 MG in WATER (STERILE) FOR INJECTION 10 ML IV ONE (09:00)
[2019-07-31] MEDS ORDERED: metroNIDAZOLE 500MG/100ML IVPB 100 ML IV ONE (09:00)
--- NOTE | 2019-07-31 13:01 | Anesthesia-General Post-Op ---
General Patient Condition Mental Status/LOC: Same as Preop Cardiovascular: Satisfactory Nausea/Vomiting: Absent Respiratory: Satisfactory Pain: Controlled Complications: Absent Post Op Complications Complications None Follow Up Care/Instructions Patient Instructions None needed. Anesthesia/Patient Condition Patient Condition Patient is doing well, no complaints, stable vital signs, no apparent adverse anesthesia problems. No complications reported per nursing. JACE WADE CRNA Jul 31, 2019 13:01 POS
--- NOTE | 2019-07-31 14:05 | OPERATIVE REPORT ---
DATE OF SERVICE: PREOPERATIVE DIAGNOSIS: A 29-year-old female with retained IUD. POSTOPERATIVE DIAGNOSIS: A 29-year-old female with retained IUD. PROCEDURES: D and C, hysteroscopy with laparoscopic retrieval of IUD. SURGEON: Ramo Tellez DO LIBRARIAN SPECIALIST: Michelle Ngo MS3. ANESTHESIA: General endotracheal. ESTIMATED BLOOD LOSS: Minimal. URINE OUTPUT: 300 mL clear during the procedure. FLUIDS: One liter of lactate Ringer solution. FINDINGS: Retained IUD in the left adnexa and just behind the ovary and the left ovarian fossa, perforation of the uterine fundus. SPECIMEN SENT: None. INDICATIONS FOR PROCEDURE: This 29-year-old female is a patient, who had delivered earlier this year in her followup. She ended up following up with [facility] and having an IUD placed. She reported that she had significant amounts of pain after this and continued and did not go away. Three months later, she went back to the [facility] to have it removed. At that point, they were unable to do so and she was sent back to my office for removal of the IUD. I attempted to remove the IUD in the office; however, I was unable to visualize the strings nor feel the IUD on intrauterine manipulation. Therefore, I discussed with the patient proceeding with a hysteroscopy and possible laparoscopy to retrieve the IUD. Risks of the procedure were discussed with the patient in detail and after all of her questions were answered, consent was obtained in the preoperative area and the patient was taken to the operating room. OPERATIVE REPORT IN DETAIL: Once in the operating room, anesthesia was found to be adequate, placed in dorsal lithotomy position, prepped and draped in normal sterile fashion. A timeout was performed. I then placed a Murray catheter using sterile technique. A weighted speculum was inserted in the patient's vagina. Right angle retractor was used to visualize the cervix, which was grasped at 12 o'clock position using a long Allis clamp. I then gently sound the uterine cavity, depth was found to be 8 cm. I then gently dilated the cervix to approximately 5 mm using Hegar dilators. This allows me to advance the hysteroscope into the uterus. There is evidence of recent perforation. Once I inserted the hysteroscope, there is no IUD visible inside of the uterine cavity. Normal saline was used as my visual medium during the time of hysteroscopy and a clear view system was used to manage my fluid. After which I removed the hysteroscope and performed a gentle curettage of the lining of the uterus; however, this pathology was not sent. I then removed the hysteroscope and the endometrial curette and placed a Kronner uterine manipulator into the uterine cavity for uterine manipulation removed all the other instruments from the patient's vagina. A flat plate KUB was performed and the IUD is confirmed on x-ray to still be in the pelvis in the left lower quadrant. At which point, the patient was reprepped abdominally. I scrubbed back into the case and approached the patient from the abdomen at this point, laparoscopically. I do this by starting infraumbilically I infiltrated this area using 0.25% Marcaine. I made a 5 mm incision, directed Veress needle through the incision until intraperitoneal placement confirmed using saline drop test. I then proceeded with insufflation using CO2 gas and opening pressure of 2 mmHg was noted. I proceeded to maximum pressure of 15 mmHg. I then removed the Veress needle and introduced a 5 mm blunt trocar. Once this was in place, I am able to confirm intraperitoneal placement using the laparoscope. I then had the patient placed in steep Trendelenburg and able to see the IUD at this point. Therefore, I placed a second trocar suprapubically. This is a 5 mm trocar was placed in similar fashion. Once this trocar was in place, I am able to manipulate the left adnexa and find the IUD, which was then removed through this trocar. I then copiously irrigated the pelvis using normal saline. No active bleeding noted from the IUD removal site; however, there was some bleeding noted from the uterine fundus and the perforation site. I cauterized this using a hook laparoscopic cautery after which there was no active bleeding noted. I then copiously irrigated the pelvis once again using normal saline. Once again, there was no active bleeding noted from any of my dissection planes. The remainder of the pelvic anatomy appears grossly normal. I then had the patient flatten down and viewed the upper abdominal anatomy, which appears to be grossly normal. I then released insufflation of the CO2 gas and removed the trocars. The skin reapproximated using Dermabond and Band-Aids were placed over the incisions. The Kronner uterine manipulator and Murray catheter were then removed. The patient tolerated the procedure well and sent to recovery in stable condition. Lap and sponge counts were correct at the end of the procedure. Instrument counts were correct as well. Job ID: [id number] DocumentID: [id number] Dictated Date: 07/31/2019 08:47:28 Aba Therapist Date: 07/31/2019 14:04:37 Dictated By: RAMO TELLEZ DO
== END 2019-07-31 11:00 | disposition home or self-care (01) ==
LOC: SDC 06:02
PROVIDERS: ATTEND Obstetrics & Gynecology
DX: T83.39XA Other mechanical complication of intrauterine contraceptive device, initial encounter (principal); Z90.49 Acquired absence of other specified parts of digestive tract; Z79.899 Other long term (current) drug therapy; K21.9 Gastro-esophageal reflux disease without esophagitis
CPT/HCPCS: 74018; 84703; 86850; 86900; 86901

== ENCOUNTER 2021-06-21 09:19 | Emergency (ER) | payer OTHER ==
[~2021-06-21] VITALS: Ht 152.4 cm; Wt 71.2 kg
[~2021-06-21 09:19] MED LIST changes: +IBUP-1773 PO
--- NOTE | 2021-06-21 09:59 | ED GU-Female ---
General Chief Complaint: Abdominal/GI Problems Stated Complaint: WEAKNESS,DIZZINESS,NAUSEA, 4 WKS Source: patient Exam Limitations: no limitations History of Present Illness Date Seen by Provider: Jun 21, 2021 Time Seen by Provider: 09:45 Initial Comments Patient is a 31-year-old G3, P2 who presents to the emergency department with a chief complaint of lower pelvic cramping, decreased appetite, generalized weakness mild nausea. Last menstrual period May 09, estimated due date February 13, 2022. Patient was seen at [facility] this morning and sent over for the above-stated complaints. She denies any fevers, chills, cough or congestion. No abnormal vaginal discharge. Patient states she was treated for a yeast infection about 2 weeks ago and those symptoms have improved. No dysuria, urgency or frequency. No vaginal bleeding or spotting. No diarrhea, black or bloody stools. She states that she went to Dr. Roberts's office yesterday for routine laboratory studies and the nurse was only able to get 3 vials of blood secondary to her dehydration. Patient states she has been taking 1 extra strength Tylenol every 6 hours for the cramping. No other complaints of systemic illness or injuries. All other review of systems reviewed and negative except as stated. Timing/Duration: constant Location: suprapubic Activities at Onset: none Associated Symptoms: nausea/vomiting Allergies and Home Medications Allergies Coded Allergies: No Known Drug Allergies (Unverified , 07/27/19) Patient Home Medication List Home Medication List Reviewed: Yes Hydrocodone Bit/Acetaminophen (Lortab 5 Mg Tablet) 1 Tab Tab, 1 TAB PO Q4H PRN for PAIN-MODERATE Prescribed by: FEDERICO ROBERTS on 07/31/19 0720 Ibuprofen (Ibuprofen) 600 Mg Tablet, 600 MG PO Q6H Prescribed by: FEDERICO ROBERTS on 07/31/19 0720 Polyethylene Glycol 3350 (Miralax) 17 Gm Powd.pack, 17 GM PO PRN, (Reported) Entered as Reported by: JOYCE GAYLE on 07/27/19 0948 Vit/Iron Fumarate/FA ( Tablet) 1 Each Tablet, 1 EACH PO DAILY, (Reported) Entered as Reported by: ORACIO HAYES on 02/12/19 1117 Review of Systems Review of Systems Constitutional: see HPI, dizziness, malaise EENTM: no symptoms reported Respiratory: no symptoms reported Cardiovascular: no symptoms reported Gastrointestinal: abdominal pain Genitourinary: no symptoms reported : Yes Expected Date of Delivery: February 13, 2022 LMP: May 09, 2021 Musculoskeletal: no symptoms reported Skin: no symptoms reported Psychiatric/Neurological: No Symptoms Reported Endocrine: No Symptoms Reported All Other Systemes Reviewed Negative Unless Noted: Yes Past Zgcdgxt-Bbhjjd-Brfmqy Hx Patient Social History Tobacco Use?: No Use of E-Cig and/or Vaping dev: No Substance use?: No Alcohol Use?: No Pt feels they are or have been: No Immunizations Up To Date PED Vaccines UTD: Yes Seasonal Allergies Seasonal Allergies: No Past Medical History Surgeries: Yes (LUMECTOMY) Gallbladder Respiratory: No Currently Using CPAP: No Currently Using BIPAP: No Cardiac: No Neurological: No SENIOR ACCOUNT REPRESENTATIVE History: IUD Sexually Transmitted Disease: No HIV/AIDS: No Genitourinary: No Gastrointestinal: Yes Gastroesophageal Reflux, Chronic Constipation Musculoskeletal: Yes (FROM IUD) Chronic Back Pain Endocrine: No HEENT: No Cancer: No Psychosocial: No Integumentary: No Blood Disorders: Yes (ANEMIA) Adverse Reaction/Blood Tranf: No (N/A) Family Medical History Diabetes mellitus 19 MOTHER Physical Exam Vital Signs Vital Signs - First Documented 06/21/21 09:37 Temp 36.1 Pulse 75 Resp 16 B/P (MAP) 110/61 (77) Pulse Ox 100 O2 Delivery Room Air Capillary Refill : Height, Weight, BMI Height: 4'9.00" Weight: 169lbs. 8.0oz. [id number]; 27.35 BMI Method:Stated General Appearance: WD/WN, no apparent distress HEENT: PERRL/EOMI Cardiovascular: regular rate, rhythm, no murmur Respiratory: lungs clear, normal breath sounds, no respiratory distress, no accessory muscle use Gastrointestinal: normal bowel sounds, non tender, soft Extremities: normal inspection, no pedal edema, normal capillary refill Neurologic/Psychiatric: alert, normal mood/affect, oriented x 3 Skin: normal color, warm/dry Progress/Results/Core Measures Suspected Sepsis SIRS Temperature: Pulse: Respiratory Rate: Blood Pressure / Mean: Laboratory Tests 06/21/21 09:45: Creatinine 0.73 Results/Orders Lab Results Laboratory Tests Test 06/21/21 09:45 Range/Units Sodium Level 137 135-145 MMOL/L Potassium Level 3.7 3.6-5.0 MMOL/L Chloride Level 103 98-107 MMOL/L Carbon Dioxide Level 22 21-32 MMOL/L Anion Gap 12 5-14 MMOL/L Blood Urea Nitrogen 8 7-18 MG/DL Creatinine 0.73 0.60-1.30 MG/DL Estimat Glomerular Filtration Rate 93 BUN/Creatinine Ratio 11 Glucose Level 78 70-105 MG/DL Calcium Level 9.1 8.5-10.1 MG/DL My Orders Orders - PAXTON MEJIAS MD Ed Iv/Invasive Line Start (06/21/21 09:59) Basic Metabolic Panel (06/21/21 09:59) Ua Culture If Indicated (06/21/21 09:59) Lactated Ringers (Lr 1000 Ml Iv Solution (06/21/21 10:00) Vital Signs/I&O 06/21/21 09:37 Temp 36.1 Pulse 75 Resp 16 B/P (MAP) 110/61 (77) Pulse Ox 100 O2 Delivery Room Air Capillary Refill : Progress Note : Time: 10:18 Progress Note bedside ultrasound used to evaluate , gestational sac observed (TA) with good decidual reaction. No obvious heartbeat observed yet. patient is still quite early - only 6w 7 at this time. Departure Impression Primary Impression: Dehydration Additional Impression: First trimester Disposition: 01 HOME, SELF-CARE Condition: Stable Departure-Patient Inst. Decision time for Depature: 09:58 Referrals: FEDERICO ROBERTS DO (PCP/Family) Primary Care Physician Patient Instructions: - The Second Month Add. Discharge Instructions: Drink lots of fluids to stay well-hydrated. You can take [id number]-arhbikg extra strength Tylenol, 2 pills every 6 hours as needed for cramping. Please keep your follow-up appointment with Dr. Roberts on July 09. Come back to the emergency room for any worse pain especially with vaginal bleeding, fever, vomiting or other emergent concerning symptoms. PAXTON MEJIAS MD Jun 21, 2021 09:59
[2021-06-21] MEDS ORDERED: LACTATED RINGERS 1,000 ML IV SCH (10:00)
[2021-06-21 10:09] LABS: POTASSIUM 3.7 MMOL/L (3.6-5.0)
[2021-06-21 10:10] LABS: CALCIUM 9.1 MG/DL (8.5-10.1)
[2021-06-21 10:14] LABS: CREATININE SERUM 0.73 MG/DL (0.60-1.30)
[2021-06-21] MEDS ORDERED: ACETAMINOPHEN 500 MG TAB (TYLENOL) ONE (10:17)
[2021-06-21] MEDS ORDERED: ACETAMINOPHEN 500 MG TAB (TYLENOL) PO ONE (10:30)
[2021-06-21 10:37] LABS: BILIRUBIN,URINE NEGATIVE (NEGATIVE); CLARITY,URINE CLEAR; COLOR,URINE YELLOW; GLUCOSE, URINE (UA) NEGATIVE (NEGATIVE); KETONES,URINE TRACE (NEGATIVE); LEUKOCYTE ESTERASE ,URINE TRACE (NEGATIVE); NITRITE,URINE NEGATIVE (NEGATIVE); PROTEIN,URINE NEGATIVE (NEGATIVE)
[2021-06-21 10:51] LABS: BACTERIA,URINE NEGATIVE /HPF; SQUAMOUS EPITHELIAL CELL,UR 0-2 /HPF; WBC,URINE 0-2 /HPF
[2021-06-21 12:02] VITALS: BP 110/67
== END 2021-06-21 12:02 | disposition home or self-care (01) ==
LOC: EDUNIT# 09:19 → ER 09:24
DX: O26.891 Other specified pregnancy related conditions, first trimester (principal); E86.0 Dehydration; G89.29 Other chronic pain; M54.9 Dorsalgia, unspecified; Z3A.01 Less than 8 weeks gestation of pregnancy; Z79.891 Long term (current) use of opiate analgesic
CPT/HCPCS: 36415; 80048; 81000

== ENCOUNTER → 2021-09-25 | Outpatient (CLI) | payer OTHER ==
--- NOTE | 2021-09-25 13:46 | Diagnostic Imaging Report ---
INDICATION: patient, survey. TECHNIQUE: Multiple real-time grayscale images were obtained over the gravid uterus. COMPARISON: There are no prior studies during this for comparison. FINDINGS: A single live intrauterine fetus is seen measuring at 20 weeks 4 days in size by composite measurements. Fetus is in cephalic presentation. Placenta is anterior with no evidence of previa. The distance from the internal cervical os to the placental tip was about 5.6 cm. Amniotic fluid is qualitatively normal. There is no subchorionic bleed. heart rate is 144 BPM. Cervical length is 6.2 cm. Maternal adnexa were not well seen but showed no free fluid. anatomical survey showed normal-appearing kidneys and bladder. Normal-appearing stomach was seen. Intracranial ventricles were normal. Four-chamber heart view is unremarkable. Three-vessel cord and cord insertion appear normal. Normal views of the spine were seen. Biometrical measurements are as follows: Biparietal 4.84 cm, age 20 weeks 5 days. Head circumference 18.18 cm, age 20 weeks 5 days. Abdominal circumference 15.80 cm, age 21 weeks 0 days. Femur length 3.14 cm, age 19 weeks 6 days. Sonographic estimate age: 20 weeks 4 days. Sonographic estimated date of delivery: 02/08/2022. Estimated Weight: 353 gm (+/- 52 gm). LMP percentile: 23%. heart rate: 144 beats per minute. number: 1 of 1. IMPRESSION: Single live intrauterine fetus measuring 20 weeks 4 days in size. There are no detectable abnormalities. Dictated by: Dictated on workstation # [id number]
== END ==
LOC: RAD 10:45
PROVIDERS: ATTEND Obstetrics & Gynecology
DX: Z34.02 Encounter for supervision of normal first pregnancy, second trimester (principal); Z3A.20 20 weeks gestation of pregnancy
CPT/HCPCS: 76805

== ENCOUNTER → 2022-01-15 | Outpatient (CLI) | payer SELFPAY | LOC: LABNPT 11:20 | PROVIDERS: ATTEND Obstetrics & Gynecology | DX: Z36.85 Encounter for antenatal screening for Streptococcus B (principal) | CPT/HCPCS: 87081 ==

== ENCOUNTER 2022-02-06 01:22 | Inpatient (IN) | payer OTHER ==
[2022-02-06] VITALS (13 sets, daily range): BP systolic 93–139; BP diastolic 51–76
[~2022-02-06] VITALS: Ht 152.4 cm; Wt 88.0 kg
[2022-02-06] MEDS ORDERED: DOCU-143 PO (01:38)
[2022-02-06] MEDS ORDERED: FERR-84 PO (01:38)
[2022-02-06] MEDS ORDERED: D5 LR IV SOLUTION 1,000 ML IV SCH (02:15)
[2022-02-06] MEDS ORDERED: LIDOCAINE/EPI 2% 1:200,00 (XYLOCAINE) 20 ML VIAL INJ PRN (02:15)
[2022-02-06] MEDS ORDERED: D5 LR IV SOLUTION 1,000 ML IV ONE (02:20)
[2022-02-06] MEDS ORDERED: OXYTOCIN PRE-MIX DRIP 500 ML IV ONE ×2 (02:20→02:52)
[2022-02-06 02:27] LABS: BASOPHILS % (AUTO) 0 % (0-10); EOSINOPHILS # (AUTO) 0.1 10^3/uL (0.0-0.3); EOSINOPHILS % (AUTO) 1 % (0-10); HEMATOCRIT 36 % (35-52); HEMOGLOBIN 11.8 g/dL (11.5-16.0); LYMPHOCYTES # (AUTO) 2.2 10^3/uL (1.0-4.0); LYMPHOCYTES % (AUTO) 24 % (12-44); MEAN CORPUSCULAR HEMOGLOBIN 28 pg (25-34); MEAN CORPUSCULAR HGB CONC 33 g/dL (32-36); MEAN CORPUSCULAR VOLUME 84 fL (80-99); MEAN PLATELET VOLUME 10.5 fL (9.0-12.2); MONOCYTES # (AUTO) 0.6 10^3/uL (0.0-1.0); MONOCYTES % (AUTO) 6 % (0-12); NEUTROPHILS # (AUTO) 6.3 10^3/uL (1.8-7.8); NEUTROPHILS % (AUTO) 68 % (42-75); PLATELET COUNT 210 10^3/uL (130-400); WHITE BLOOD COUNT 9.3 10^3/uL (4.3-11.0)
[2022-02-06 02:27] LABS: BILIRUBIN,URINE NEGATIVE (NEGATIVE); CLARITY,URINE CLEAR; COLOR,URINE YELLOW; GLUCOSE, URINE (UA) NEGATIVE (NEGATIVE); KETONES,URINE NEGATIVE (NEGATIVE); LEUKOCYTE ESTERASE ,URINE 2+ (NEGATIVE); NITRITE,URINE NEGATIVE (NEGATIVE); PH,URINE 6.5 (5-9); PROTEIN,URINE NEGATIVE (NEGATIVE)
[2022-02-06 02:44] LABS: AMORPHOUS SEDIMENT,UR FEW AMOR PHOSPHATE /LPF; BACTERIA,URINE FEW /HPF
[2022-02-06] MEDS ORDERED: LIDOCAINE/EPI 2% 1:200,00 (XYLOCAINE) 10 ML VIAL ONE (02:51)
--- NOTE | 2022-02-06 03:07 | History & Physical-OB ---
OB - Chief Complaint & HPI Date/Time Date of Admission: Date of Admission: February 06, 2022 at 02:06 Date seen by a Provider: February 06, 2022 Time Seen by a Provider: 02:15 Chief Complaint/History OB-Reason for Admission/Chief: Onset of Labor Hx : 4 Hx Para: 3 Expected Date of Delivery: February 13, 2022 Gestational Age in Weeks: 39 Gestational Age in Days: 0 Other reason for admission: Patient presented in active labor rapidly making change from 6 cm to 8 cm when I was called to come in for delivery. Admission Nurse Assessment Rev: Yes History of Labs A pos Antibody neg RI RPR NR HBsAg NR HIV NR GC neg GBS neg Allergies and Home Medications Allergies Coded Allergies: No Known Drug Allergies (Unverified , 07/27/19) Patient Home Medication List Home Medication List Reviewed: Yes Docusate Sodium (Colace) 100 Mg Capsule, 100 MG PO DAILY, (Reported) Entered as Reported by: SHAI BREWER on 02/06/22137 Last Action: New Order Ferrous Sulfate (Iron) 325 Mg (65 Mg Iron) Tablet, 325 MG PO DAILY, (Reported) Entered as Reported by: SHAI BREWER on 02/06/22137 Last Action: New Order Vit/Iron Fumarate/FA ( Tablet) 1 Each Tablet, 1 EACH PO DAILY, (Reported) Entered as Reported by: ORACIO HAYES on 02/12/19 111 Last Action: Reviewed Discontinued Medications Hydrocodone Bit/Acetaminophen (Lortab 5 Mg Tablet) 1 Tab Tab, 1 TAB PO Q4H PRN for PAIN-MODERATE Discontinued Reason: No Longer Taking Prescribed by: FEDERICO TELLEZ on 07/31/19719 Last Action: Discontinued Ibuprofen (Ibuprofen) 600 Mg Tablet, 600 MG PO Q6H Discontinued Reason: No Longer Taking Prescribed by: FEDERICO TELLEZ on 07/31/19719 Last Action: Discontinued Polyethylene Glycol 3350 (Miralax) 17 Gm Powd.pack, 17 GM PO PRN, (Reported) Discontinued Reason: No Longer Taking Entered as Reported by: JOYCE GAYLE on 07/27/19 0948 Last Action: Discontinued OB - History Hx of Present Care: Yes Ultrasounds: Normal mid trimester US Obstetrical Complications: None Medical Complications: None Delivery History Adverse Rxn to Tranfusion: No (N/A) Patient Past Medical History n/a Social History/Family History 2nd Hand Smoke Exposure: No OB - Admission Exam Physical Exam Vitals: Vital Signs 02/06/22 01:35 Temp 36.8 Pulse 95 Resp 18 Pulse Ox 98 O2 Delivery Room Air HEENT: NCAT Heart: Rhythm Normal Lungs: Clear Abdomen: Gravid Extremities: Normal Reflexes: Normal Cervical Dilatation: 8cm Effacement: 100% Station: 0 Membranes: Intact Heart Rate: 130's Accelerations: Accelerations Present Decelerations: No Decelerations Short Term Variability: Present Long-Term Variability: Average (6-25) Contractions on Admission: < 5 Minutes Apart Intensity: Firm Labs Laboratory Tests Test 02/06/22 01:25 02/06/22 02:10 Range/Units Urine Color YELLOW Urine Clarity CLEAR Urine pH 6.5 5-9 Urine Specific [place] <=1.005 1.016-1.022 Urine Protein NEGATIVE NEGATIVE Urine Glucose (UA) NEGATIVE NEGATIVE Urine Ketones NEGATIVE NEGATIVE Urine Nitrite NEGATIVE NEGATIVE Urine Bilirubin NEGATIVE NEGATIVE Urine Urobilinogen 0.2 < = 1.0 MG/DL Urine Leukocyte Esterase 2+ H NEGATIVE Urine RBC (Auto) 2+ H NEGATIVE Urine RBC 5-10 H /HPF Urine WBC 2-5 /HPF Urine Squamous Epithelial Cells 2-5 /HPF Urine Crystals PRESENT H /LPF Urine Amorphous Sediment FEW SANJANA PHOSPHATE H /LPF Urine Bacteria FEW H /HPF Urine Casts NONE /LPF Urine Mucus NEGATIVE /LPF Urine Culture Indicated YES White Blood Count 9.3 4.3-11.0 10^3/uL Red Blood Count 4.29 3.80-5.11 10^6/uL Hemoglobin 11.8 11.5-16.0 g/dL Hematocrit 36 35-52 % Mean Corpuscular Volume 84 80-99 fL Mean Corpuscular Hemoglobin 28 25-34 pg Mean Corpuscular Hemoglobin Concent 33 32-36 g/dL Red Cell Distribution Width 16.4 H 10.0-14.5 % Platelet Count 210 130-400 10^3/uL Mean Platelet Volume 10.5 9.0-12.2 fL Immature Granulocyte % (Auto) 1 % Neutrophils (%) (Auto) 68 42-75 % Lymphocytes (%) (Auto) 24 12-44 % Monocytes (%) (Auto) 6 0-12 % Eosinophils (%) (Auto) 1 0-10 % Basophils (%) (Auto) 0 0-10 % Neutrophils # (Auto) 6.3 1.8-7.8 10^3/uL Lymphocytes # (Auto) 2.2 1.0-4.0 10^3/uL Monocytes # (Auto) 0.6 0.0-1.0 10^3/uL Eosinophils # (Auto) 0.1 0.0-0.3 10^3/uL Basophils # (Auto) 0.0 0.0-0.1 10^3/uL Immature Granulocyte # (Auto) 0.1 0.0-0.1 10^3/uL OB - Assessment/Plan/Diagnosis Assessment Assessment: active labor Admission Dx 32 yo @ 39 weeks Active labor GBS neg Admission Status: Inpatient Order (span 2 midnights) Reason for Inpatient Admission: Active labor at term Plan Plan: Expectant Management FEDERICO TELLEZ DO February 06, 2022 03:07
[2022-02-06] MEDS ORDERED: IBUPROFEN 600 MG (MOTRIN) TAB PO ONE (03:13)
--- NOTE | 2022-02-06 03:13 | OB Labor & Delivery Record ---
L&D History Date of Service Date of Service: February 06, 2022 History Expected Date of Delivery: February 13, 2022 Gestational Age in Weeks: 39 Hx : 4 Hx Para: 3 Complications Events: Routine care Operative Indications (Cesarea: N/A-Vaginal Delivery Intrapartal Events: None L&D Stage1 Stage One Onset of Labor - Date: February 06, 2022 Monitors and Tracing Monitor Mode: External Monitor Accelerations: Uniform Monitor Decelerations: Variable Supervisor Agency Appointments Variability: Average (6-10) Short Term Variability: Present Presentation: Vertex Vital Signs VS - Last 72 Hours, by Label 02/06/22 01:35 Temp 36.8 Pulse 95 Resp 18 Pulse Ox 98 O2 Delivery Room Air Rupture of Membranes Spontaneous Ruture of Membrane: No Amniotic Membrane Rupture Time: 02:15 Amniotic Membrane Fluid Desc.: Meconium Stained Vaginal Bleeding Description: Normal Show Progress/Notes Patient admitted at 6 cm in active labor within the hour she was complete, I presented for delivery AROM performed bedside at [facility] and patient began pushing L&D Stage2 Stage Two Stage II Date: February 06, 2022 Monitors and Tracing Monitor Mode: External Heart Rate: 125 Monitor Accelerations: Uniform Monitor Decelerations: Variable Fci Variability: Average (6-10) Short Term Variability: Present Position: Right Occiput Anterior Presentation: Vertex Cord Descript/Complications Cord Vessel Description: 3 Vessels Delivery Type Delivery Method: Spontaneous Vaginal Anterior Shoulder: Left Episiotomy/Perineal Laceration Laceraction(s)/Extensions: Yes Episiotomy Description: Perineal Extension/lac, 1st degree Degree (describe repair) 1st degree laceration repaired using 3-0 rapide in usual fashion. Condition of Delivery 1 minute Comment: 8 5 minute Comment: 9 Notes Live female weight 8lbs 7 oz Condition of Condition of : Living Exam: No Observed Abnormalities Resuscitation Resuscitation: N/A - Spontaneous Resp L&D Stage3 Stage Three Stage III Date: February 06, 2022 Pictocin Pitocin Administration Comment: 30 mu wide open after delivery of placenta Placenta Delivery Placenta Delivery: Spontaneous Delivery Summary Summary Estimated blood loss (mL): 50 Attending at delivery: Federico Tellez DO Condition of Delivery Examined: Cervix Examined, Uterus Explored Post Hemorrhage: No Condition of Mother stable Condition of Infant (s) stable FEDERICO TELLEZ S DO February 06, 2022 03:13
[2022-02-06] MEDS ORDERED: KETOROLAC 30 MG/ML VIAL IVP ONE (03:15)
[2022-02-06] MEDS ORDERED: WITCH HAZEL(TUCKS) 40 EA JAR TOP PRN (03:15)
[2022-02-06] MEDS ORDERED: TETANUS,DIPTH,PERTUSS P/F (BOOSTRIX) 0.5 ML VIAL IM ONE (03:15)
[2022-02-06] MEDS ORDERED: DIBUCAINE 1% OINTMENT 30 GM TUBE TOP PRN (03:15)
[2022-02-06] MEDS ORDERED: BENZOCAINE/MENTHOL (DERMOPLAST) 56 ML CAN TP PRN (03:15)
[2022-02-06] MEDS ORDERED: HYDROcodone/APAP 5 MG/325 MG (LORTAB) TAB PO PRN (03:15)
[2022-02-06] MEDS: IBUPROFEN 600 MG (MOTRIN) TAB PO SCH ×4 (03:15→21:19)
[2022-02-06] MEDS ORDERED: MEASLES,MUMPS,RUBELLA 1 EA INJ SQ ONE (03:15)
[2022-02-06] MEDS ORDERED: NALOXONE 0.4 MG/ML 1 ML (NARCAN) VIAL IV PRN (03:15)
--- NOTE | 2022-02-06 03:15 | Discharge Inst-Women's Service ---
Discharge Inst-Women's Serv Depart Medication/Instructions New, Converted or Re-Newed RX: Transmitted to Pharmacy Final Diagnosis PPD 1 NVD Problems Reviewed?: Yes Consults/Follow Up Additional Follow Up: Yes Orders/Referrals Dr. Tellez in 6 weeks Activity Activity: Activity as Tolerated Driving Instructions: No Driving for 1 Week NO SMOKING: NO SMOKING Nothing Inside Vagina: No Douching, No [place], No Tampons Diet Discharge Diet: No Restrictions Symptoms to Report to : Bleeding Excessive, Pain Increased, Fever Over 101 Degrees F, Vaginal Bleeding Increase, Questions/Concerns For Any Problems or Questions: Contact Your Physician FEDERICO TELLEZ DO February 06, 2022 03:15
[2022-02-06] MEDS ORDERED: FERR325T24 PO (03:16)
[2022-02-06] MEDS ORDERED: IBUP-844 PO (03:16)
[2022-02-06] MEDS ORDERED: DOCU100C37 PO (03:16)
[2022-02-06] MEDS ORDERED: BENZ78AE5 TP (03:16)
[2022-02-06] MEDS ORDERED: HYDROcodone/APAP 5 MG/325 MG (LORTAB) TAB ONE (03:18)
[2022-02-06] MEDS: OXYTOCIN PRE-MIX DRIP 500 ML IV SCH ×2 (03:22→03:26)
[2022-02-06] MEDS ORDERED: SIMETHICONE 80 MG (MYLICON) CHEW ONE (05:52)
[2022-02-06] MEDS ORDERED: CATHETER FLUSH 10 ML SYR IV SCH ×2 (06:00)
[2022-02-06] MEDS ORDERED: SIMETHICONE 80 MG (MYLICON) CHEW PO SCH (09:00)
[2022-02-06] MEDS: FERROUS SULF 325 MG (IRON) TAB PO SCH (09:34)
[2022-02-06] MEDS: DOCUSATE SODIUM 100 MG (COLACE) CAP PO SCH ×2 (09:34→21:19)
[2022-02-06] MEDS: PRENATAL VITAMIN 1 EA TAB PO SCH (09:34)
[2022-02-06] MEDS: ACETAMINOPHEN 500 MG TAB (TYLENOL) PO SCH ×2 (14:48→21:20)
[2022-02-07 03:20] VITALS: BP 104/59
[2022-02-07] MEDS: ACETAMINOPHEN 500 MG TAB (TYLENOL) PO SCH ×3 (03:23→15:06)
[2022-02-07] MEDS: IBUPROFEN 600 MG (MOTRIN) TAB PO SCH ×3 (03:23→15:06)
[2022-02-07 06:00] LABS: BASOPHILS % (AUTO) 0 % (0-10); EOSINOPHILS # (AUTO) 0.1 10^3/uL (0.0-0.3); EOSINOPHILS % (AUTO) 1 % (0-10); HEMATOCRIT 32 % (35-52); HEMOGLOBIN 10.1 g/dL (11.5-16.0); LYMPHOCYTES # (AUTO) 2.5 10^3/uL (1.0-4.0); LYMPHOCYTES % (AUTO) 32 % (12-44); MEAN CORPUSCULAR HEMOGLOBIN 27 pg (25-34); MEAN CORPUSCULAR HGB CONC 31 g/dL (32-36); MEAN CORPUSCULAR VOLUME 87 fL (80-99); MEAN PLATELET VOLUME 10.9 fL (9.0-12.2); MONOCYTES # (AUTO) 0.4 10^3/uL (0.0-1.0); MONOCYTES % (AUTO) 6 % (0-12); NEUTROPHILS # (AUTO) 4.7 10^3/uL (1.8-7.8); NEUTROPHILS % (AUTO) 60 % (42-75); PLATELET COUNT 180 10^3/uL (130-400); WHITE BLOOD COUNT 7.8 10^3/uL (4.3-11.0)
[2022-02-07] MEDS ORDERED: SIMETHICONE 80 MG (MYLICON) CHEW PO PRN (08:30)
[2022-02-07 09:02] VITALS: BP 109/54
[2022-02-07] MEDS: PRENATAL VITAMIN 1 EA TAB PO SCH (09:03)
[2022-02-07] MEDS: FERROUS SULF 325 MG (IRON) TAB PO SCH (09:04)
[2022-02-07] MEDS: DOCUSATE SODIUM 100 MG (COLACE) CAP PO SCH (09:04)
--- NOTE | 2022-02-07 12:53 | Postpartum Progress Note ---
Note Note Day # 1 Subjective: Patient is without complaints. Ambulating, voiding. Tolerating a regular diet without nausea or vomiting. Normal lochia. Pain is well controlled with oral pain medications. Objective: Physical Exam: General - Alert and oriented, no apparent distress Abdomen - Soft, appropriately tender to palpation, non-distended, fundus firm at umbilicus Extremities - no edema, negative Deisi's bilaterally Assessment: PPD 1 NVD Acute blood loss anemia Plan: Routine care. Encourage breast feeding. Encourage ambulation. Ferrous sulfate supplementation. Plan for discharge today Vitals - Labs Vital Signs - I&O Vital Signs Date Time Temp Pulse Resp B/P (MAP) Pulse Ox O2 Delivery O2 Flow Rate FiO2 02/07/22 09:02 36.2 77 18 109/54 (72) 99 Room Air 02/07/22 03:20 36.0 66 16 104/59 (74) 97 Room Air 02/06/22 22:50 36.5 65 16 93/54 (67) 98 Room Air 02/06/22 16:10 36.3 85 18 121/60 (80) 98 Room Air Labs Laboratory Tests 02/07/22 05:52: White Blood Count 7.8, Red Blood Count 3.72L, Hemoglobin 10.1L, Hematocrit 32L, Mean Corpuscular Volume 87, Mean Corpuscular Hemoglobin 27, Mean Corpuscular Hemoglobin Concent 31L, Red Cell Distribution Width 16.6H, Platelet Count 180, Mean Platelet Volume 10.9, Immature Granulocyte % (Auto) 1, Neutrophils (%) (Auto) 60, Lymphocytes (%) (Auto) 32, Monocytes (%) (Auto) 6, Eosinophils (%) (Auto) 1, Basophils (%) (Auto) 0, Neutrophils # (Auto) 4.7, Lymphocytes # (Auto) 2.5, Monocytes # (Auto) 0.4, Eosinophils # (Auto) 0.1, Basophils # (Auto) 0.0, Immature Granulocyte # (Auto) 0.0 FEDERICO TELLEZ DO February 07, 2022 12:53
== END 2022-02-07 15:17 | disposition home or self-care (01) | DRG 806 ==
LOC: WSo 01:22 → LDRP 01:24 → WSo 02:05 → LDRP 02:06
PROVIDERS: ADMIT Obstetrics & Gynecology; ATTEND Obstetrics & Gynecology
PROC: 10E0XZZ Delivery of Products of Conception, External Approach (ICD-10-PCS; principal; 2022-02-06)
PROC: 10907ZC Drainage of Amniotic Fluid, Therapeutic from Products of Conception, Via Natural or Artificial Opening (ICD-10-PCS; 2022-02-06)
PROC: 3E033VJ Introduction of Other Hormone into Peripheral Vein, Percutaneous Approach (ICD-10-PCS; 2022-02-06)
PROC: 0HQ9XZZ Repair Perineum Skin, External Approach (ICD-10-PCS; 2022-02-06)
DX: O70.0 First degree perineal laceration during delivery (principal); D62 Acute posthemorrhagic anemia; Z37.0 Single live birth; Z3A.39 39 weeks gestation of pregnancy; O90.81 Anemia of the puerperium
CPT/HCPCS: 36415; 81000; 85025; 86850; 86900; 86901; 87088; 99212

== ENCOUNTER 2023-06-12 20:12 | Emergency (ER) | payer SELFPAY ==
[~2023-06-12] VITALS: Ht 152 cm; Wt 68.0 kg
[~2023-06-12 20:12] MED LIST changes: +BENZ78AE5 TP; +FERR-84 PO; +FERR325T24 PO
[2023-06-12 20:33] LABS: BASOPHILS % (AUTO) 0 % (0-10); EOSINOPHILS # (AUTO) 0.1 10^3/uL (0.0-0.3); EOSINOPHILS % (AUTO) 1 % (0-10); HEMATOCRIT 39 % (35-52); HEMOGLOBIN 12.5 g/dL (11.5-16.0); LYMPHOCYTES # (AUTO) 2.3 10^3/uL (1.0-4.0); LYMPHOCYTES % (AUTO) 32 % (12-44); MEAN CORPUSCULAR HEMOGLOBIN 31 pg (25-34); MEAN CORPUSCULAR HGB CONC 32 g/dL (32-36); MEAN CORPUSCULAR VOLUME 96 fL (80-99); MEAN PLATELET VOLUME 10.8 fL (9.0-12.2); MONOCYTES # (AUTO) 0.6 10^3/uL (0.0-1.0); MONOCYTES % (AUTO) 8 % (0-12); NEUTROPHILS # (AUTO) 4.2 10^3/uL (1.8-7.8); NEUTROPHILS % (AUTO) 58 % (42-75); PLATELET COUNT 216 10^3/uL (130-400); WHITE BLOOD COUNT 7.2 10^3/uL (4.3-11.0)
[2023-06-12 20:40] LABS: BACTERIA,URINE TRACE /HPF; BILIRUBIN,URINE NEGATIVE (NEGATIVE); CLARITY,URINE CLEAR; COLOR,URINE YELLOW; GLUCOSE, URINE (UA) NEGATIVE (NEGATIVE); KETONES,URINE NEGATIVE (NEGATIVE); LEUKOCYTE ESTERASE ,URINE NEGATIVE (NEGATIVE); NITRITE,URINE NEGATIVE (NEGATIVE); PROTEIN,URINE NEGATIVE (NEGATIVE); SQUAMOUS EPITHELIAL CELL,UR 0-2 /HPF
[2023-06-12] MEDS ORDERED: fentaNYL INJECTION 100 MCG/2 ML VIAL IVP STA (20:49)
[2023-06-12 20:54] LABS: ALBUMIN 4.4 GM/DL (3.2-4.5); BILIRUBIN,TOTAL 0.3 MG/DL (0.1-1.0); CALCIUM 9.1 MG/DL (8.5-10.1); CREATININE SERUM 0.8 MG/DL (0.60-1.30); POTASSIUM 3.7 MMOL/L (3.6-5.0); TOTAL PROTEIN 7.2 GM/DL (6.4-8.2)
[2023-06-12] MEDS ORDERED: LACTATED RINGERS 1,000 ML 1,000 ML IV ONE (21:00)
[2023-06-12] MEDS ORDERED: ONDANSETRON INJECTION 4 MG/2 ML (SDV) IVP ONE (21:00)
--- NOTE | 2023-06-12 21:12 | ED Abdominal Pain ---
General Chief Complaint: Abdominal/GI Problems Stated Complaint: LEFT SIDE AB PAIN Nursing Triage Note: PATIENT REPORTS WITH LUQ AND LLQ PAIN X'S 4 DAYS. PER PATIENT THE PAIN TRAVELS TO HER LOWER ABD. WELL AROUND TO HER LOWER BACK/WAIST. DENIES FEVER. DENIES URINARY SYMPTOMS. PATIENT AMB. TO BATHROOM FIRST THEN ROOM WITHOUT DIFFICULTY. Source of Information: Patient History of Present Illness Date Seen by Provider: Jun 12, 2023 Time Seen by Provider: 20:20 Initial Comments PT ARRIVES VIA POV FROM HOME FOR THE LAST 3-4 DAYS, PT HAS HAD DIFFUSE LEFT SIDED ABDOMINAL PAIN AND LOWER ABDOMINAL PAIN AND ALSO DIFFUSE LOWER BACK PAIN RATES PAIN 9/10 AT THIS TIME + NAUSEA, NO VOMITING HAD A NORMAL BM THIS AM NO FEVER NO URINARY SYMPTOMS AND VOIDED A NORMAL AMOUNT SHE HAS BEEN TAKING TYLENOL--LAST DOSE 3 HOURS AGO LAST FOOD INTAKE WAS A SMALL AMOUNT OF CHICKEN ABOUT 3 HOURS AGO SHE IS TAKING FLUIDS WELL. LMP 05/26/23 AND ANOTHER ONE 06/08/23. NO CONTROL PT IS STILL 1 Y.O. CHILD. SHE HAS HAD CHOLECYSTECTOMY SHE TAKES OTC PEPCID FOR GERD SYMPTOMS SHE ALSO HAS CHRONIC CONSTIPATION BUT DOES NOT TAKE ANYTHING FOR IT SHE ALSO HAS CHRONIC BACK PAIN PCP: SABRINA. KAMLESH QUIÑONEZ Allergies and Home Medications Allergies Coded Allergies: No Known Drug Allergies (Unverified , 07/27/19) Patient Home Medication List Benzocaine/Menthol (Dermoplast Pain Relieving [place]) 20 %-0.5 % Aerosol, 56 EA TP UD PRN for PAIN- SEE INSTRUCTIONS Prescribed by: FEDERICO TELLEZ on 02/06/22315 Docusate Sodium (Docusate Sodium) 100 Mg Capsule, 100 MG PO BID PRN for CONSTIPATION-1ST LINE Prescribed by: FEDERICO TELLEZ on 02/06/22315 Ferrous Sulfate (Ferosul) 325 Mg (65 Mg Iron) Tablet, 325 MG PO DAILY Prescribed by: FEDERICO TELLEZ on 02/06/22315 Ibuprofen (Ibu) 600 Mg Tablet, 600 MG PO Q6HR Prescribed by: FEDERICO TELLEZ on 02/06/22315 Vit/Iron Fumarate/FA ( Tablet) 1 Each Tablet, 1 EACH PO DAILY, (Reported) Entered as Reported by: ORACIO HAYES on 02/12/19 1117 Review of Systems Review of Systems Constitutional: no symptoms reported EENTM: No Symptoms Reported Respiratory: No Symptoms Reported Cardiovascular: No Symptoms Reported Gastrointestinal: See HPI, Abdominal Pain; Denies Constipated, Denies Diarrhea; Nausea; Denies Vomiting Genitourinary: No Symptoms Reported Musculoskeletal: see HPI, back pain Skin: no symptoms reported Psychiatric/Neurological: No Symptoms Reported Endocrine: No Symptoms Reported Hematologic/Lymphatic: No Symptoms Reported Past Thxyfjo-Lwzast-Ihrwpn Hx Patient Social History Tobacco Use?: No Substance use?: No Alcohol Use?: No Pt feels they are or have been: No Immunizations Up To Date PED Vaccines UTD: Yes Seasonal Allergies Seasonal Allergies: No Past Medical History Surgery/Hospitalization HX: PMHX;DENIED. SURG. HX.-GALLBLADDER AND LEFT BREAST CYST, AND COPPER T IUD PLACEMENT AND REMOVAL. Surgeries: Yes (LEFT BREAST CYST REMOVED. ) Breast, Gallbladder Respiratory: No Currently Using CPAP: No Currently Using BIPAP: No Cardiac: No Neurological: No : No Last Menstrual Period: Jun 08, 2023 Reproductive Disorders: No Sexually Transmitted Disease: No HIV/AIDS: No Genitourinary: No Gastrointestinal: Yes Gastroesophageal Reflux, Chronic Constipation Musculoskeletal: Yes Chronic Back Pain Endocrine: No HEENT: No Cancer: No Psychosocial: No Integumentary: No Blood Disorders: Yes (ANEMIA) Adverse Reaction/Blood Tranf: No (N/A) Family Medical History Diabetes mellitus 19 MOTHER Physical Exam Vital Signs Vital Signs - First Documented 06/12/23 20:17 Temp 36.5 Pulse 61 Resp 16 B/P (MAP) 123/91 (102) Pulse Ox 100 O2 Delivery Room Air Capillary Refill : Less Than 3 Seconds Height/Weight/BMI Height: 4'9.00" Weight: 169lbs. 8.0oz. 76.110002sq; 29.00 BMI Method:Stated General Appearance: WD/WN, no apparent distress, other (SMILING, WALKS UPRIGHT AND MOVES WITHOUT DIFFICULTY. DOES NOT APPEAR ILL OR TO BE IN ANY DISCOMFORT OR DISTRESS. ) HEENT: PERRL/EOMI Neck: normal inspection Respiratory: normal breath sounds, no respiratory distress, no accessory muscle use Cardiovascular: regular rate, rhythm, no murmur Gastrointestinal: normal bowel sounds, soft, no organomegaly, no pulsatile mass; No distended, No guarding, No rebound; tenderness (DIFFUSE ABDOMINAL TENDERNESS. MOST TENDER ALL ALONG LEFT SIDE OF ABDOMEN AND IN SUPRAPUBIC AREA. SHE ALSO HAS BILATERAL FLANK TENDERNESS. 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, no motor/sensory deficits, alert, normal mood/affect, oriented x 3 Skin: normal color (), warm/dry; No rash Progress/Results/Core Measures Results/Orders Lab Results Laboratory Tests Test 06/12/23 20:17 06/12/23 20:24 Range/Units Urine Color YELLOW Urine Clarity CLEAR Urine pH 6.0 5-9 Urine Specific [place] 1.025 H 1.016-1.022 Urine Protein NEGATIVE NEGATIVE Urine Glucose (UA) NEGATIVE NEGATIVE Urine Ketones NEGATIVE NEGATIVE Urine Nitrite NEGATIVE NEGATIVE Urine Bilirubin NEGATIVE NEGATIVE Urine Urobilinogen 0.2 < = 1.0 MG/DL Urine Leukocyte Esterase NEGATIVE NEGATIVE Urine RBC (Auto) NEGATIVE NEGATIVE Urine RBC NONE /HPF Urine WBC NONE /HPF Urine Squamous Epithelial Cells 0-2 /HPF Urine Crystals NONE /LPF Urine Bacteria TRACE /HPF Urine Casts NONE /LPF Urine Mucus NEGATIVE /LPF Urine Culture Indicated NO White Blood Count 7.2 4.3-11.0 10^3/uL Red Blood Count 4.08 3.80-5.11 10^6/uL Hemoglobin 12.5 11.5-16.0 g/dL Hematocrit 39 35-52 % Mean Corpuscular Volume 96 80-99 fL Mean Corpuscular Hemoglobin 31 25-34 pg Mean Corpuscular Hemoglobin Concent 32 32-36 g/dL Red Cell Distribution Width 12.5 10.0-14.5 % Platelet Count 216 130-400 10^3/uL Mean Platelet Volume 10.8 9.0-12.2 fL Immature Granulocyte % (Auto) 0 % Neutrophils (%) (Auto) 58 42-75 % Lymphocytes (%) (Auto) 32 12-44 % Monocytes (%) (Auto) 8 0-12 % Eosinophils (%) (Auto) 1 0-10 % Basophils (%) (Auto) 0 0-10 % Neutrophils # (Auto) 4.2 1.8-7.8 10^3/uL Lymphocytes # (Auto) 2.3 1.0-4.0 10^3/uL Monocytes # (Auto) 0.6 0.0-1.0 10^3/uL Eosinophils # (Auto) 0.1 0.0-0.3 10^3/uL Basophils # (Auto) 0.0 0.0-0.1 10^3/uL Immature Granulocyte # (Auto) 0.0 0.0-0.1 10^3/uL Urine Test NEGATIVE NEGATIVE Sodium Level 139 135-145 MMOL/L Potassium Level 3.7 3.6-5.0 MMOL/L Chloride Level 104 98-107 MMOL/L Carbon Dioxide Level 26 21-32 MMOL/L Anion Gap 9 5-14 MMOL/L Blood Urea Nitrogen 12 7-18 MG/DL Creatinine 0.80 0.60-1.30 MG/DL Estimat Glomerular Filtration Rate 100 BUN/Creatinine Ratio 15 Glucose Level 84 70-105 MG/DL Calcium Level 9.1 8.5-10.1 MG/DL Corrected Calcium 8.8 8.5-10.1 MG/DL Total Bilirubin 0.3 0.1-1.0 MG/DL Aspartate Amino Transf (AST/SGOT) 15 5-34 U/L Alanine Aminotransferase (ALT/SGPT) 12 0-55 U/L Alkaline Phosphatase 58 40-136 U/L Total Protein 7.2 6.4-8.2 GM/DL Albumin 4.4 3.2-4.5 GM/DL Amylase Level 58 25-125 U/L Lipase 23 8-78 U/L My Orders Orders - CATE GALVAN DO Ed Iv/Invasive Line Start (06/12/23 20:20) Amylase (06/12/23 20:20) Cbc With Automated Diff (06/12/23 20:20) Comprehensive Metabolic Panel (06/12/23 20:20) Hcg,Qualitative Urine (06/12/23 20:20) Lipase (06/12/23 20:20) Ua Culture If Indicated (06/12/23 20:20) Urine Bedside (06/12/23 20:20) Ct Abdomen/Pelvis W (06/12/23 20:49) Ed Iv/Invasive Line Start (06/12/23 20:49) Lactated Ringers 1,000 Ml (Lactated Ring (06/12/23 21:00) Ondansetron Injection (Ondansetron Inj (06/12/23 21:00) Fentanyl Injection (Fentanyl Injection (06/12/23 20:49) Iohexol Injection (Omnipaque 350 Mg/Ml 1 (06/12/23 21:45) Received Contrast (Hold Metformin- Contr (06/12/23 21:45) Ns (Ivpb) 100 Ml (Sodium Chloride 0.9% 1 (06/12/23 21:45) Medications Given in ED Current Medications Medications Dose Ordered Sig/Jason Route Start Time Stop Time Status Last Admin Dose Admin Iohexol 100 ml ONCE ONCE IV 06/12/23 21:45 06/12/23 21:46 UNV 06/12/23 21:45 78 ML Lactated Ringer's 1,000 ml @ 0 mls/hr Q0M ONCE IV 06/12/23 21:00 06/12/23 21:01 DC 06/12/23 20:56 1,000 MLS/HR Ondansetron HCl 4 mg ONCE ONCE IVP 06/12/23 21:00 06/12/23 21:01 DC 06/12/23 20:56 4 MG Sodium Chloride 100 ml ONCE ONCE IV 06/12/23 21:45 06/12/23 21:46 UNV 06/12/23 21:45 80 ML Vital Signs/I&O 06/12/23 20:17 Temp 36.5 Pulse 61 Resp 16 B/P (MAP) 123/91 (102) Pulse Ox 100 O2 Delivery Room Air Blood Pressure Mean: [address] ABDOMEN/PELVIS--PER RADIOLOGIST REPORT AT 2205 FINDINGS: The heart is unremarkable. The included lung bases are clear. The liver, spleen, pancreas, adrenal glands and kidneys have a normal appearance. The gallbladder is surgically absent. There is no pathologically enlarged mesenteric or retroperitoneal adenopathy. The bowel loops are nondilated. The appendix is visualized in the right lower quadrant and has a normal appearance. There is no free fluid or free air. No acute osseous abnormality. The urinary bladder is moderately distended. No bladder calculi are seen. There is no free air, loculated collection or adenopathy in the pelvis. IMPRESSION: 1. No acute abnormality in the abdomen or pelvis. No bowel obstruction, free fluid or free air. No renal calculus. 2. Moderately distended urinary bladder. Reviewed: Reviewed by Me Departure Impression Primary Impression: Abdominal pain Disposition: HOME, SELF-CARE Condition: Stable Departure-Patient Inst. Decision time for Depature: 22:06 Referrals: FEDERICO TELLEZ DO (PCP/Family) Primary Care Physician Patient Instructions: Abdominal pain Add. Discharge Instructions: HOME, REST CLEAR LIQUIDS--WATER, BROTH, JELLO, GATORADE TYLENOL NEEDED FOR PAIN FOLLOW UP WITH YOUR DR IN 2-3 DAYS IF NO BETTER All discharge instructions reviewed with patient and/or family. Voiced understanding. CATE GALVAN DO Jun 12, 2023 21:12
--- NOTE | 2023-06-12 21:39 | Diagnostic Imaging Report ---
EXAMINATION: CT abdomen and pelvis with intravenous contrast. TECHNIQUE: Multiple contiguous axial images were obtained through the abdomen and pelvis after the uneventful administration of intravenous contrast. All CT scans use one or more of the following dose optimizing techniques: automated exposure control, MA and/or KvP adjustment based on patient size and exam type or iterative reconstruction. HISTORY: Left-sided abdominal pain. Nausea. COMPARISON: None available. FINDINGS: The heart is unremarkable. The included lung bases are clear. The liver, spleen, pancreas, adrenal glands and kidneys have a normal appearance. The gallbladder is surgically absent. There is no pathologically enlarged mesenteric or retroperitoneal adenopathy. The bowel loops are nondilated. The appendix is visualized in the right lower quadrant and has a normal appearance. There is no free fluid or free air. No acute osseous abnormality. The urinary bladder is moderately distended. No bladder calculi are seen. There is no free air, loculated collection or adenopathy in the pelvis. IMPRESSION: 1. No acute abnormality in the abdomen or pelvis. No bowel obstruction, free fluid or free air. No renal calculus. 2. Moderately distended urinary bladder. Dictated by: Dictated on workstation # [id number]
[2023-06-12] MEDS ORDERED: HOLD METFORMIN - RECEIVED CONTRAST 20 ML VIAL IV SCH (21:45)
[2023-06-12] MEDS ORDERED: NS 100 ML (IVPB) BAG IV ONE (21:45)
[2023-06-12] MEDS ORDERED: IOHEXOL 350 MG/ML 100 ML (OMNIPAQUE 350) VIAL IV ONE (21:45)
[2023-06-12 22:19] VITALS: BP 108/65
== END 2023-06-12 22:19 | disposition home or self-care (01) ==
LOC: EDUNIT# 20:12 → ER 20:14
DX: R10.32 Left lower quadrant pain (principal); R10.12 Left upper quadrant pain; R11.0 Nausea; Z90.49 Acquired absence of other specified parts of digestive tract
CPT/HCPCS: 36415; 74177; 80053; 81000; 82150; 83690; 84703; 85025